=== PATIENT | female | born 1940 | race Caucasian/White ===

== ENCOUNTER → 2016-05-18 | Outpatient (CLI) | payer MEDICARE, OTHER ==
[~2016-05-18] MED LIST: CHOL2000 PO; GLIP5TAB11 PO; PLN5 PO
[2016-05-18 18:53] LABS: BASO ABS # 0.09 K/uL (0-0.2); COMPLETE YES; EOS % 8.8 %; HEMATOCRIT 27.7 % (37-47); IG% 0.2 %; LYMPH % 17.1 %; LYMPH ABS # 1.62 K/uL (1.2-3.4); MEAN CELL VOLUME 89.1 fL (80-100); MEAN CORPUSCULAR HEMOGLOBIN 29.3 pg (25-34); MEAN CORPUSCULAR HGB CONC 32.9 g/dl (32-36); MEAN PLATELET VOLUME 10.3 fL (7.4-10.4); MONO % 8.1 %; NEUT % 64.8 %; PLATELET COUNT 313 K/uL (130-400); RED BLOOD COUNT 3.11 M/uL (4.2-5.4); WHITE BLOOD COUNT 9.47 K/uL (4.8-10.8)
[2016-05-18 19:06] LABS: BLOOD UREA NITROGEN 61 mg/dl (7-18); BUN/CREATININE RATIO 16.5 (10-20); CALCIUM 8.7 mg/dl (8.5-10.1); CARBON DIOXIDE 22 mmol/L (21-32); CHLORIDE 109 mmol/L (98-107); GLUCOSE 107 mg/dl (70-99); PHOSPHORUS 4.1 mg/dl (2.5-4.9); POTASSIUM 5.5 mmol/L (3.5-5.1); SODIUM 142 mmol/L (136-145)
[2016-05-19 06:03] LABS: ESTIMATED AVERAGE GLUCOSE 131 mg/dl; HA1C FLAG Normal (Normal)
== END | disposition home or self-care (01) ==
LOC: C.LABMFLN 11:23
PROVIDERS: ATTEND Family Medicine
DX: E11.29 Type 2 diabetes mellitus with other diabetic kidney complication (principal)

== ENCOUNTER 2016-09-10 04:46 | Inpatient (IN) | payer MEDICARE, OTHER ==
[~2016-09-10] VITALS: Ht 160 cm; Wt 77.4 kg
[2016-09-10] VITALS (67 sets, daily range): BP systolic 30–170; BP diastolic 22–79; PULSE 27–162; TEMP 36.3–37.8; O2SAT 50–100; Ht 160 cm; Wt 77.4 kg
[2016-09-10] MEDS ORDERED: ASPIRIN 324 MG CHEW ONE (04:53)
[2016-09-10] MEDS ORDERED: SODIUM CHLORIDE 0.9% 1000ML 1,000 ML IV STA (04:53)
[2016-09-10] MEDS ORDERED: GLIP5TAB11 PO ×2 (04:53)
[2016-09-10] MEDS ORDERED: ONDANSETRON INJ 2 MG/ML 2 ML VIAL ONE ×2 (04:53→05:27)
[2016-09-10] MEDS ORDERED: PLN5 PO (04:53)
[2016-09-10] MEDS ORDERED: CHOL2000 PO (04:54)
[2016-09-10] MEDS ORDERED: NovoLIN-R INSULIN PER UNIT CHARGE SC STA (04:57)
[2016-09-10] MEDS ORDERED: DEXTROSE 50% 50 ML SYR IV STA (04:57)
[2016-09-10] MEDS ORDERED: CALCIUM GLUCONATE 10% 10 ML VIAL IV STA (04:57)
[2016-09-10] MEDS ORDERED: SODIUM CHLORIDE 0.9% 250ML 250 ML IV STA (04:57)
[2016-09-10 05:03] LABS: BASO % 0.1 %; BASO ABS # 0.01 K/uL (0-0.2); HEMATOCRIT 28.1 % (37-47); IG% 1.3 %; LYMPH % 3.7 %; LYMPH ABS # 0.68 K/uL (1.2-3.4); MEAN CORPUSCULAR HEMOGLOBIN 29.8 pg (25-34); MEAN CORPUSCULAR HGB CONC 31.7 g/dl (32-36); MEAN PLATELET VOLUME 10.8 fL (7.4-10.4); MONO % 6.5 %; NEUT % 88.4 %; PLATELET COUNT 312 K/uL (130-400); RED BLOOD COUNT 2.99 M/uL (4.2-5.4); WHITE BLOOD COUNT 18.33 K/uL (4.8-10.8)
[2016-09-10] MEDS ORDERED: PROMETHAZINE HCL INJ 12.5 MG in SODIUM CHLORIDE 0.9% 50ML 50 ML IV STA (05:05)
[2016-09-10] MEDS ORDERED: MIDAZOLAM HCL 1 MG/ML 2ML VIAL ONE (05:08)
[2016-09-10] MEDS ORDERED: HEPARIN SOD (PORCINE) 1000 UNIT/ML 10 ML VIAL ONE (05:08)
[2016-09-10] MEDS ORDERED: NiCARDipine HCL INJ 2.5 MG/ML 10 ML AMP ONE (05:08)
[2016-09-10] MEDS ORDERED: NITROGLYCERIN/D5W 100MCG/ML 20ML SYR ONE (05:09)
[2016-09-10] MEDS ORDERED: FENTANYL CITRATE INJ 50 MCG/1 ML 2 ML VIAL ONE ×2 (05:09→17:57)
[2016-09-10 05:11] LABS: ISTAT CREATININE 7.8 mg/dl (0.6-1.3); ISTAT HEMOGLOBIN 9.5 g/dl (12.0-16.0); ISTAT IONIZED CALCIUM 1.05 mmol/l (1.12-1.32)
--- NOTE | 2016-09-10 05:17 | EMERGENCY ROOM VISIT NOTE ---
History Report prepared by Rosanna: Philly Paredes Under the Supervision of: Dr. Rita Ocasio M.D. First contact with patient: 04:47 Chief Complaint: HEART ALERT Stated Complaint: HEART ALERT History of Present Illness The patient is a 75 year old who presents to the Emergency Room with complaints of constant abdominal pain beginning [employer]. Per EMS, they were called by family because the patient was complaining of back pain and abdominal pain. She has been nauseated for the past 3 days. EMS arrived and family said that she does not go to the doctor frequently. The last time that she went, she was told that she needed dialysis, but she never followed up with this. She thinks this was about a year ago. She has never received dialysis and is not scheduled to. She was nauseated and dry heaving en route and EMS gave her 4mg of Zofran. The patient refused aspirin. She denies any current chest pain or shortness of breath. 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 A total of 10 systems reviewed and were otherwise negative. Past Medical & Surgical Medical Problems: (1) Type 2 diabetes mellitus Family History No pertinent history stated. Social History Smoking Status: Never Smoker Marital Status: Housing Status: lives with family Current/Historical Medications Scheduled Cholecalciferol (Vitamin D3), 1 CAP PO DAILY Felodipine (Felodipine ER), 5 MG PO DAILY Glipizide (Glucotrol), 1 TAB PO QAM Miscellaneous Medications Glipizide (Glucotrol), 0.5 TAB PO Physical Exam Vital Signs Date Time Temp Pulse Resp B/P Pulse Ox O2 Delivery O2 Flow Rate FiO2 09/10/16 05:13 57 20 108/61 96 Nasal Cannula 4.0 09/10/16 05:11 94 Nasal Cannula 4.0 09/10/16 04:56 43 09/10/16 04:50 89 4.0 09/10/16 04:50 36.5 49 22 121/62 96 Nasal Cannula 4.0 Physical Exam Vital signs reviewed. General: Pale ill-appearing 75 year old female, retching. HEENT: No scleral icterus, PERRLA, neck supple. Atraumatic. Cardiovascular: Bradycardic rate and irregular rhythm, no extra sounds. Pulmonary: Crackles at the bases bilaterally. Increased work of breathing. Abdomen: Soft, no specific point tenderness, nondistended, positive bowel sounds. Musculoskeletal: Atraumatic, no peripheral edema. Left mid-foot amputation. Neurologic: Patient awake alert and oriented x 3, full strength in all 4 extremities. Cranial nerves 2 through 12 grossly intact. Skin: Clammy, [id number], pale Medical Decision & Procedures ER Provider Diagnostic Interpretation: Chest x-ray as interpreted by myself pulmonary vascular congestion with pulmonary consolidation at the bases bilaterally. Laboratory Results 09/10/16 04:54 Red Blood Count 2.99, Mean Corpuscular Volume 94.0, Mean Corpuscular Hemoglobin 29.8, Mean Corpuscular Hemoglobin Concent 31.7, Mean Platelet Volume 10.8, Neutrophils (%) (Auto) 88.4, Lymphocytes (%) (Auto) 3.7, Monocytes (%) (Auto) 6.5, Eosinophils (%) (Auto) 0.0, Basophils (%) (Auto) 0.1, Neutrophils # (Auto) 16.21, Lymphocytes # (Auto) 0.68, Monocytes # (Auto) 1.20, Eosinophils # (Auto) 0.00, Basophils # (Auto) 0.01 09/10/16 04:54 Test 09/10/16 04:54 09/10/16 04:55 White Blood Count 18.33 K/uL (4.8-10.8) Red Blood Count 2.99 M/uL (4.2-5.4) Hemoglobin 8.9 g/dL (12.0-16.0) Hematocrit 28.1 % (37-47) Mean Corpuscular Volume 94.0 fL (80-100) Mean Corpuscular Hemoglobin 29.8 pg (25-34) Mean Corpuscular Hemoglobin Concent 31.7 g/dl (32-36) Platelet Count 312 K/uL (130-400) Mean Platelet Volume 10.8 fL (7.4-10.4) Neutrophils (%) (Auto) 88.4 % Lymphocytes (%) (Auto) 3.7 % Monocytes (%) (Auto) 6.5 % Eosinophils (%) (Auto) 0.0 % Basophils (%) (Auto) 0.1 % Neutrophils # (Auto) 16.21 K/uL (1.4-6.5) Lymphocytes # (Auto) 0.68 K/uL (1.2-3.4) Monocytes # (Auto) 1.20 K/uL (0.11-0.59) Eosinophils # (Auto) 0.00 K/uL (0-0.5) Basophils # (Auto) 0.01 K/uL (0-0.2) RDW Standard Deviation 51.3 fL (36.4-46.3) RDW Coefficient of Variation 15.1 % (11.5-14.5) Immature Granulocyte % (Auto) 1.3 % Immature Granulocyte # (Auto) 0.23 K/uL (0.00-0.02) Nucleated RBC Absolute Count (auto) 0.09 K/uL (0-0) Nucleated Red Blood Cells % 0.5 % Ovalocytes 1+ Echinocytes 1+ Prothrombin Time 15.8 SECONDS (9.0-12.0) Prothromb Time International Ratio 1.5 (0.9-1.1) Activated Partial Thromboplast Time 27.8 SECONDS (21.0-31.0) Partial Thromboplastin Ratio 1.1 Est Creatinine Clear Calc Drug Dose 6.4 ml/min Estimated GFR () 5.7 Estimated GFR (Non- 4.9 BUN/Creatinine Ratio 13.6 (10-20) Calcium Level 7.8 mg/dl (8.5-10.1) Magnesium Level 2.5 mg/dl (1.8-2.4) Total Bilirubin 6.5 mg/dl (0.2-1) Direct Bilirubin 0.4 mg/dl (0-0.2) Aspartate Amino Transf (AST/SGOT) 774 U/L (15-37) Alanine Aminotransferase (ALT/SGPT) 891 U/L (12-78) Alkaline Phosphatase 82 U/L (45-117) Total Creatine Kinase 2041 U/L (26-192) Creatine Kinase MB 107.2 ng/ml (0.5-3.6) Creatine Kinase MB Ratio 5.3 (0-3.0) Troponin I 73.200 ng/ml (0-0.045) Total Protein 6.5 gm/dl (6.4-8.2) Albumin 3.3 gm/dl (3.4-5.0) Lipase 58 U/L (73-393) Bedside Hemoglobin 9.5 g/dl (12.0-16.0) Bedside Hematocrit 28 % (37-47) Bedside Sodium 135 mEq/L (135-144) Bedside Potassium 7.3 mEq/L (3.3-5.0) Bedside Chloride 111 mEq/L (101-112) Bedside Total CO2 10 mEq/l (24-31) Anion Gap 23.0 mmol/L (16-25) Bedside Blood Urea Nitrogen 115 mg/dl (7-18) Bedside Creatinine 7.8 mg/dl (0.6-1.3) Bedside Glucose (other) 192 mg/dl (70-99) Bedside Ionized Calcium (Bogdan) 1.05 mmol/l (1.12-1.32) Medications Administered Medications (Trade) Dose Ordered Sig/Tad Route Start Time Stop Time Status Last Admin Dose Admin Aspirin (Aspirin Chew) 324 mg STK-MED ONCE .ROUTE 09/10/16 04:53 09/10/16 04:54 DC 09/10/16 05:12 324 MG Ondansetron HCl 4 mg 4 mg STK-MED ONCE .ROUTE 09/10/16 04:53 09/10/16 04:54 DC 09/10/16 05:11 4 MG Sodium Chloride (Nss 1000ml) 1,000 ml @ 75 mls/hr [id number] STAT IV 09/10/16 04:53 09/10/16 18:12 09/10/16 05:12 75 MLS/HR Dextrose (Dextrose 50% 50ML Syringe) 50 ml NOW STAT IV 09/10/16 04:57 09/10/16 04:58 DC 09/10/16 05:09 25 ML Calcium Gluconate (Calcium Gluconate 10%) 1,000 mg NOW STAT IV 09/10/16 04:57 09/10/16 04:58 DC 09/10/16 05:11 1,000 MG Insulin Human Regular 10 units 10 units NOW STAT SC 09/10/16 04:57 09/10/16 04:58 DC 09/10/16 05:10 10 UNITS Promethazine HCl/ Sodium Chloride (Phenergan Inj/ Nss 50ml) 50.5 ml @ 204 mls/hr NOW STAT IV 09/10/16 05:05 09/10/16 05:19 DC 09/10/16 05:05 204 MLS/HR Procedure Endotracheal Intubation Indication: hypoxia. The patient was on 100% oxygen via NRB prior to the procedure. Suction, airway equipment, RSI drugs, respiratory equipment, and appropriate personnel were prepared prior to the initiation of the procedure. A time out was taken. Induction was performed with 35 mg Rocuronium and 20 mg of etomidate. After observing the clinical benefit of the medications, the airway was easily visualized utilizing a 4.0 MAC blade. A 7.5 size ETT tube was placed atraumatically to 22 cm using standard technique. The cuff inflated without signs of malfunction. There were bilateral breath sounds, positive colormetric change, no gastric sounds, a good capnography waveform, and post procedure pulse oximetry was 94%. Post intubation sedation and paralysis was left to the hospitalist service. There were no complications. ECG Indication: abdominal pain Rate (beats per minute): 50 Rhythm: sinus rhythm Findings: 1st degree AV block, ST elevation (Inferior and lateral), other ( Reciprocal change in the anterior leads) ED Course 0447: Past medical records reviewed. The patient was evaluated in room B1. A complete history and physical examination was performed. Prior to the patient's arrival in the department, I took medical command and a heart alert was called. 0453: NSS 1000 ml @ 75 mls/hr IV, Zofran 4 mg IV, Aspirin 324 mg PO 0457: Insulin Human Regular 10 units SC, Calcium Gluconate 1000 mg IV, Dextrose 50 ml IV 0500: At this time Dr. Foley of cardiology came to the ED to evaluate the patient. We discussed the patient's case. 0505: Promethazine HCl 12.5 mg/Sodium Chloride 50.5 ml @ 204 mls/hr IV 0511: The patient's daughter arrived in the department. I updated her on the patient's results and treatment plan. I answered all of her questions. 0515: Dr. Foley will take the patient to the cardiac catheterization lab at this time. 0521: I spoke with Dr. Calle. We discussed the patient's results and treatment plan. The patient will be evaluated by the [facility] for further management. 0615: At this time I was called to the cardiac catheterization lab to intubate the patient. Please see the procedure note for further details. Medical Decision Differential diagnoses includes ACS, aortic dissection, dehydration, metabolic abnormality, PE, CHF, viral illness, bowel obstruction, GI bleed, acute renal failure. This pt was evaluated and appeared to be in no distress. IV access was obtained and lab work was drawn. Patient was placed on the athletic monitor. iSTAT labs were drawn. The patient's creatinine is found to be 7.8, potassium is 7.3. Patient's EKG reveals a first-degree AV block with a bradycardia. There is ST elevation NE present. Heart alert was called based on the medic command given prior to arrival. Patient was given 1 amp of calcium gluconate, one half amp of D 50 because of a blood sugar of 198. Patient was then given regular insulin 10 units IV push. IV hydration was initiated. Supplemental oxygen was provided. The patient was given 4 baby aspirin to chew. We did discuss the need for dialysis, the patient states she was told she needed dialysis previously however stopped going to the doctor. At this time she states she is amenable to intervention. Dr. Foley of interventional cardiology did present to the emergency department and took the patient to the catheterization lab after discussing the case with the patient and her daughter. While in the catheterization lab, the patient became hypoxic and required intubation. I was called for the procedure, please see my note above. The patient was sent to the intensive care unit after a dialysis catheter was placed by Dr. Foley, please see his notes for further details. Consults Time Called: 0518 Consulting Physician: Dr. Calle Returned Call: [address] Calle. We discussed the patient's results and treatment plan. The patient will be evaluated by the [facility] for further management. Impression Primary Impression: Acute myocardial infarction Additional Impressions: Bradycardia Acute on chronic renal failure Hyperkalemia Critical Care I have personally spent greater than 45 minutes of critical care time in the direct management of this patient. This includes bedside care, interpretation of diagnostic studies, and testing, discussion with consultants, patient, and family members, and other required patient management activities. This 45 minutes is in excess of all separately billable procedures. Scribe Attestation The scribe's documentation has been prepared under my direction and personally reviewed by me in its entirety. I confirm that the note above accurately reflects all work, treatment, procedures, and medical decision making performed by me. Departure Information Dispostion Being Evaluated By Hospitalist Referrals Isis Jacobs M.D. (PCP) Patient Instructions My [facility] Problem Qualifiers Primary Impression: Acute myocardial infarction Myocardial infarction ST status: ST elevation myocardial infarction Involved coronary artery: unspecified coronary artery Qualified Codes: I21.3 - ST elevation (STEMI) myocardial infarction of unspecified site Additional Impressions: Acute on chronic renal failure Acute renal failure type: unspecified Chronic kidney disease stage: stage 5 , not on chronic dialysis Qualified Codes: N17.9 - Acute kidney failure, unspecified; N18.5 - Chronic kidney disease, stage 5
[2016-09-10 05:21] LABS: INR 1.5 (0.9-1.1); PARTIAL THROMBOPLASTIN RATIO 1.1; PROTHROMBIN TIME (PATIENT) 15.8 SECONDS (9.0-12.0)
[2016-09-10 05:24] LABS: COMPLETE YES; ECHINOCYTES 1+; OVALOCYTES 1+
[2016-09-10 05:39] LABS: BUN/CREATININE RATIO 13.6 (10-20); CALCIUM 7.8 mg/dl (8.5-10.1); CKMB/CK RATIO 5.3 (0-3.0); CREATININE 7.3 mg/dl (0.60-1.20); MAGNESIUM 2.5 mg/dl (1.8-2.4); POTASSIUM 7.2 mmol/L (3.5-5.1)
[2016-09-10] MEDS ORDERED: EPTIFIBATIDE 2 MG/ML 10 ML VIAL IV ONE (05:52)
[2016-09-10] MEDS ORDERED: SODIUM BICARB 8.4% INJ 50 MEQ/50 ML SYR IV ONE ×2 (05:54→06:42)
[2016-09-10] MEDS ORDERED: DOPamine 400MG / 250ML D5W ONE (06:08)
[2016-09-10] MEDS ORDERED: RAPID SEQUENCE INDUCTION BAG ONE (06:20)
--- NOTE | 2016-09-10 06:43 | DIAGNOSTIC IMAGING REPORT ---
CHEST ONE VIEW PORTABLE CLINICAL HISTORY: Atypical chest pain COMPARISON STUDY: No previous studies for comparison. FINDINGS: The heart is enlarged. There is radiographic evidence of mild congestive failure/fluid overload. There are bibasal airspace opacities likely secondary to edema. An inflammatory process could appear similar and clinical correlation is advocated. Small pleural effusions are suspected. IMPRESSION: 1. Radiographic evidence of pulmonary vascular congestion with suspected small bilateral pleural effusions 2. Bibasal airspace opacities. While likely representing focal edema, an infectious process could appear similar and clinical correlation in this regard is advocated Electronically signed by: Stephane Nichols M.D. 09/10/2016 6:42 AM Dictated Date/Time: 09/10/2016 6:40 AM
[2016-09-10] MEDS ORDERED: SODIUM BICARBONATE 8.4% INJ 150 MEQ in SODIUM CHLORIDE 0.45% 1000ML 1,000 ML IV SCH (07:00)
[2016-09-10] MEDS ORDERED: DEXTROSE 50% 50 ML SYR IV PRN (07:15)
[2016-09-10] MEDS ORDERED: GLUCAGON FOR INJ 1 MG VIAL SQ PRN (07:15)
[2016-09-10] MEDS ORDERED: EPTIFIBATIDE BOLUS / DRIP IV ONE (07:15)
[2016-09-10] MEDS ORDERED: GLUCOSE 10 TABS/TUBE PO PRN (07:15)
[2016-09-10] MEDS ORDERED: GLUCOSE 40% GEL 15 GM TUBE PO PRN (07:15)
--- NOTE | 2016-09-10 07:20 | Procedure Note ---
Pre-Mod Sedation Assessment General Date of Moderate Sedation: September 10, 2016. Vital Signs: Vital Signs Past 12 Hours Date Time Temp Pulse Resp B/P Pulse Ox O2 Delivery O2 Flow Rate FiO2 09/10/16 05:13 57 20 108/61 96 Nasal Cannula 4.0 09/10/16 05:11 94 Nasal Cannula 4.0 09/10/16 04:56 43 09/10/16 04:50 89 4.0 09/10/16 04:50 36.5 49 22 121/62 96 Nasal Cannula 4.0 Review Cardiovascular: regular rate, rhythm, no edema Abdomen: normal bowel sounds, non tender Lungs: chest non-tender, lungs clear Pre-Sedation Airway Assessment Oral Cavity: WNL Able to Visualize Vocal Cords: Yes Short Thick Neck: Yes Hx of Sleep Apnea: Yes Smoking Status: Never Smoker Mallampati Classification: Class III ASA Classification: Class III Procedure Planning Contraindications-for Mod Sed: None Yes Notes The planned sedation has been discussed with the patient and consent obtained. I have identified the patient, determined the appropriateness of sedation and have assessed the patient immediately prior to the procedure. All medicine(s) and interventions are by my order.
--- NOTE | 2016-09-10 07:21 | Procedure Note ---
Post-Mod Sedation Assessment General Date of Moderate Sedation September 10, 2016. Vital Signs: Vital Signs Past 12 Hours Date Time Temp Pulse Resp B/P Pulse Ox O2 Delivery O2 Flow Rate FiO2 09/10/16 05:13 57 20 108/61 96 Nasal Cannula 4.0 09/10/16 05:11 94 Nasal Cannula 4.0 09/10/16 04:56 43 09/10/16 04:50 89 4.0 09/10/16 04:50 36.5 49 22 121/62 96 Nasal Cannula 4.0 Review - Discharge Criteria Vital Signs Stable: Yes Alert/Oriented/Conversant: Yes Returned to Baseline Mental St: Yes Nausea Absent/Minimal: Yes Pain/Discomfort/Absent/Minimal: Yes Normal/Baseline Respirations: Yes Active Bleeding?: N/A Pt Received D/C Instructions: N/A Prescriptions Given: None Specific Proced. D/C Criteria Distal Pulses Present (Cardiac: Yes Groin site assessed-Card Cath: N/A Voided Prior To Discharge: N/A Discharged Patients Adult Escort/Transportation: Yes
[2016-09-10 07:34] LABS: ISTAT CREATININE 6.8 mg/dl (0.6-1.3); ISTAT HEMOGLOBIN 8.2 g/dl (12.0-16.0); ISTAT IONIZED CALCIUM 1.12 mmol/l (1.12-1.32)
[2016-09-10 07:34] LABS: ISTAT CREATININE 6.9 mg/dl (0.6-1.3); ISTAT HEMOGLOBIN 8.8 g/dl (12.0-16.0); ISTAT IONIZED CALCIUM 1.13 mmol/l (1.12-1.32)
[2016-09-10 07:34] LABS: ISTAT ARTERIAL BLOOD GAS HCO3 9 meq/L (19-24); ISTAT ARTERIAL BLOOD GAS PCO2 41 mmHg (35-46); ISTAT ARTERIAL BLOOD GAS PO2 175 mmHg (80-95); ISTAT ARTERIAL BLOOD GAS pH 6.95 (7.35-7.45); ISTAT CARBON DIOXIDE 10 mEq/l (24-31)
[2016-09-10 07:34] LABS: ISTAT ARTERIAL BLOOD GAS HCO3 17 meq/L (19-24); ISTAT ARTERIAL BLOOD GAS PCO2 45 mmHg (35-46); ISTAT ARTERIAL BLOOD GAS PO2 157 mmHg (80-95); ISTAT ARTERIAL BLOOD GAS pH 7.19 (7.35-7.45); ISTAT CARBON DIOXIDE 18 mEq/l (24-31)
--- NOTE | 2016-09-10 07:46 | Cardiac Catheterization ---
Procedure Note Procedure Date September 10, 2016. Pre-Procedure Diagnosis STEMI AUC Score 9 Post-Procedure Diagnosis Severe CAD, Successful PCI, Elevated Intracardiac Pressures Procedure(s) Performed Coronary Angiography, Left Heart Cath, Drug Eluting Stent Software Test Developer Delivery Sales Worker(s) Gab Estimated Blood Loss 27 Medication(s) Atropine, Dopamine, Fentanyl, Heparin, Integrilin, Nicardipine, Lidocaine 1% Summary of Findings Indication: STEMI/Heart Alert Access: 6Fr slender right radial artery Catheters: Wilmot, JR4 guide Findings: LM - Luminal irregularities LAD - Moderately calcified, diffuse mid segment disease up to 80% just proximal to take-off of small 2nd diagonal. Circumflex - Small, non-dominant, luminal irregularities RCA - Completely occluded in the mid segment. Post initial balloon inflation noted to have severe diffuse disease from mid to distal segment prior to take- off of PDA. PDA with sequential 80% lesions. LVEDP - 28 -- PCI -- Antithrombotic therapy: Heparin, IV/IC integrilin Procedure: RCA cannulated with JR4 guide Unable to pass lesion with BMW, successfully passed Dog Boarder 50 wire across lesion into distal vessel Mid RCA lesion predilated with 2.5 compliant balloon Dilated lesion stented with overlapping 3.0 x 38 Resolute MARY and 3.0 x 22 Resolute MARY Stent post-dilated with stent balloon. IC nicardipine, IC integrilin administered for slow reflow post stenting. PDA disease treated with gentle balloon angioplasty Post stenting patient hypotensive and bradycardic requiring dopamine and atropine. Respiratory status became increasing unstable decision made to intubate patient. Intubation performed Dr. Ocasio. Post procedure ROSA 3 flow, stent well expanded with minimal residual stenosis. minimal residual stenosis in ballooned PDA. No apparent cardiac complications. Arterial Closure: TR Band In total in the setting of patients renal failure, hyperkalemia and metabolic acidosis patient received 5 units insulin, 6 Amps Bicarb before being placed on a bicarb infusion. At the completion of case, temporary dialysis catheter placed to right femoral vein. Dopamine weaned off prior to leaving laborer pipelines. Summary: 1. Inferior STEMI/Occluded mid RCA 2. Residual severe mid LAD disease 3. Elevated intracardiac filling pressure 4. Successful PCI of mid RCA with 2 overlapping Resolute MARY (3.0 x 33, 3.0 x 22 ) Recommendations: Admit to ICU Continue integrilin infusion for 12 hours To receive ticagrelor 180 mg in ICU. Continue DAPT for at least 1 year (likely transition to plavix prior to discharge) Trend troponin until peak, Check Echo Nephrology contacted regarding emergent HD Start beta-mikaela. GARCIA as BP allows High-dose statin Consult cardiac Rehab Further evaluation/revascularization of LAD likely as an outpatient. Hemodynamics Rest Ao: 112/47/73 Final Ao: 138/74/100 LV: 104/17/28 Recommendations PCI without planned CABG Specimens None Radiation Exposure (mGy) 2973 Contrast (mls) 110 Fluids (cc crystalloids) 290 Drains none Anesthesia moderate Procedural Complication(s) None Disposition ICU ACC Data Cardiac Status Clinical evaluation leading to the procedure CAD Presntation: STEMI Anginal Classification: CCS IV Heart Failure: No, NYHA Class: CCS IV Cardiogenic Shock w/in 24Hrs: Yes Cardiac Arrest w/in 24Hrs: No Imaging studies past 6 months: No Stress studies past 6 months: No Standard Exercise Stress Test: No Stress Echocardiogram: No Stress Testing w/SPECT MPI: No Cardiac CTA: No Coronary Anatomy Dominant: Right Left Main (% Stenosis): Normal LAD (% Stenosis): Mid (90) Circumflex (% Stenosis): Normal RCA (% Stenosis): Mid (100) R PDA (% Stenosis): Proximal (80) Diagnostic Physician's Name: Beck Foley MD Status: Emergency Closure Device Percutaneous Entry Location: Radial Closure Device: Radial Band Recommendations: PCI without planned CABG PCI Indication: Immediate PCI for STEMI First Noted: First EKG Lesion Segment Name: Mid RCA Culprit Artery: Yes Stenosis Prior to Rx (%): 100 Chronic Total Occlusion: No IVUS: No FFR: No Pre-Procedure ROSA Flow: 0 Previously Treated Lesion: No Lesion Complexity: Non-High/Non-C Lesion Length (mm): 25 Thrombus Present: Yes Bifurcation Lesion: No Guidewire Across Lesion: Yes Guidewire: Stenosis Post-Procedure (%): 0 Post-Procedure ROSA Flow: 3 Device(s) Deployed: Yes Intraprocedure Events Significant Dissection: No Perforation: No
--- NOTE | 2016-09-10 07:53 | Procedure Note ---
Procedure Note Procedure Date September 10, 2016. Procedure Description Procedure Name: Left radial arterial line Procedure time out: side/site verified, patient ID confirmed, correct procedure Consent obtained: emergent consent implied Time of procedure: 07:30 Performed by: attending Indications: diagnostic Contraindications: none Description: Indication: hypotension, respiratory failure, AMI, need for invasive blood pressure monitoring. Patient's left wrist was prepped with chlorhexidine and draped in sterile fashion. 2 ML's 1% lidocaine was used to anesthetize the area. Using dynamic ultrasound the left radial artery was visualized. A 20-gauge aero catheter was used to enter the left radial artery via modified Seldinger technique. Good blood return was noted, the catheter was secured via stat lock. Patient tolerated the procedure well Blood loss: Trace Complications: none Patient tolerated procedure: well Post-procedure vital signs: reviewed and stable Comments: Critical Care Medicine Point of Care Bedside Ultrasound Procedure: Procedural Ultrasound Procedure Date: 09/10/2016 Indication: Acute [place], hypertension, need for emergent dialysis, need for invasive hemodynamic monitoring Attending: Nabor Davis DO Resident/Physician Crane Ladle Person: Not applicable Artery visualized: Yes Guidewire or Short Catheter seen in artery prior to dilation: y Impression: Successful placement of left radial arterial line Plan: Emergent dialysis to be started imminently Images obtained are saved for permanent record
[2016-09-10] MEDS ORDERED: EPTIFIBATIDE INJ 75 MG PREMIXED IV SCH (08:00)
[2016-09-10] MEDS ORDERED: TICAGRELOR 90 MG TAB PO ONE (08:00)
[2016-09-10] MEDS ORDERED: MIDAZOLAM 125MG/250ML D5W 250 ML IV PRN (08:15)
[2016-09-10 08:43] LABS: ISTAT ARTERIAL BLOOD GAS HCO3 15 meq/L (19-24); ISTAT ARTERIAL BLOOD GAS PCO2 41 mmHg (35-46); ISTAT ARTERIAL BLOOD GAS PO2 157 mmHg (80-95); ISTAT ARTERIAL BLOOD GAS pH 7.18 (7.35-7.45); ISTAT CARBON DIOXIDE 16 mEq/l (24-31); ISTAT HEMATOCRIT 22 % (37-47); ISTAT HEMOGLOBIN 7.5 g/dl (12.0-16.0); ISTAT SODIUM 141 mEq/L (135-144)
[2016-09-10] MEDS ORDERED: MAGNESIUM SULFATE 1GM / D5W 1 GM in PREMIXED IN D5W 100 ML IV ONE (09:00)
[2016-09-10] MEDS ORDERED: EPOETIN ALFA 10,000 UNITS/ML VIAL IV. SCH (09:00)
[2016-09-10] MEDS ORDERED: DOBUTamine 500MG / 250ML D5W ONE (09:06)
--- NOTE | 2016-09-10 09:07 | Nephrology Consultation ---
Nephrology Consultation Date & Providers Date of Consultation: September 10, 2016. Primary Care Provider: Isis Jacobs M.D. Referring Provider: Reason for Consultation Emergency HD History of Present Illness Ms. Baugh is a 75 year old white female who is seen at the request of Dr. Foley to provide emergency HD. 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 Previously she was evaluated by Dr. Rangel at the [place] office. She was educated about her stage IV CKD and renal replacement therapies were discussed. The patient was last seen 07/15 and chose not to pursue further Nephrology evaluation. Ms. Baugh was brought to the ED this morning for evaluation of abdominal and back pain. Creatinine was 7.8, K 7.3. ECG revealed 1st degree AVB with bradycardia and evidence of STEMI. Patient received IV Ca, bicarbonate and insulin. She was taken emergently to the lab asst. Cardiac catheterization revealed occluded RCA and diffuse LAD disease. Patient underwent DUDE WRANGLER w/ stenting x 2 of the RCA. Nephrology was consulted by telephone. A right femoral temporary dialysis catheter was placed at the conclusion of her catheterization procedure. Ms. Baugh developed respiratory failure. She required intubation and was subsequently admitted to the ICU for emergency HD and ongoing medical management. The patient's clinical course and medical plan of care has been discussed with Dr. Foley, the critical care team and the patient's family. Ms. Baugh's daughter indicated that she will provide consent for hemodialysis. The family noted that Ms. Baugh was opposed to HD in the past but understand that it is acutely necessary at this time to stabilize her condition and allow an informed decision at a later date. Past Medical/Surgical History Medical: 1. Acute osteomyelitis (M86.10) 2. Anemia (D64.9) 3. Benign essential hypertension (I10) 4. Chronic kidney disease, stage 4 (severe) (N18.4) 5. Diabetes mellitus type 2, uncontrolled (E11.65) 6. Diabetes mellitus with renal manifestation (E11.29) 7. Hypercholesterolemia (E78.0) 8. Nausea (R11.0) 9. Postmenopausal bleeding (N95.0) 10. Type 2 Diabetes Mellitus With Diabetic Peripheral Angiopathy With Gangrene Surgical: History of Surgery Left Foot Amputation MTP Inpatient Medications Current Inpatient Medications Medications (Trade) Dose Ordered Sig/Tad Route Start Time Stop Time Status Last Admin Dose Admin Sodium Bicarbonate/ Sodium Chloride (Sodium Bicarbonate 8.4% Inj/1/2 Nss 1000ml) 1,150 ml @ 150 mls/hr [id number] IV 09/10/16 07:00 09/10/16 14:39 Metoprolol Tartrate (Lopressor Tab) 25 mg Q12 PO 09/10/16 09:00 10/10/16 08:59 Ticagrelor (Brilinta Cap) 90 mg BID PO 09/10/16 21:00 10/10/16 20:59 Aspirin (Ecotrin Tab) 81 mg QAM PO 09/11/16 09:00 10/11/16 08:59 Atorvastatin Calcium (Lipitor Tab) 80 mg HS PO 09/10/16 21:00 10/10/16 20:59 Insulin Aspart (novoLOG ASPART) SLIDING SCALE If C... ACHS SC 09/10/16 11:00 10/10/16 10:59 Glucose (Glucose 40% Gel) 15-30 GRAMS 15 GRAMS... UD PRN PO 09/10/16 07:15 10/10/16 07:14 Glucose (Glucose Chew Tab) 4-8 Tablets 4 Tabl... UD PRN PO 09/10/16 07:15 10/10/16 07:14 Dextrose (Dextrose 50% 50ML Syringe) 25-50ML OF 50% DW IV FOR... UD PRN IV 09/10/16 07:15 10/10/16 07:14 Glucagon 1 mg 1 mg UD PRN SQ 09/10/16 07:15 10/10/16 07:14 Eptifibatide (Integrilin Inj) 100 ml @ 6 mls/hr [id number] IV 09/10/16 08:00 09/10/16 19:00 Miscellaneous 1 ea 1 ea ONE ONCE N/A 09/10/16 19:00 09/10/16 19:01 Midazolam HCl (Midazolam 125MG/ 250ML D5w) 250 ml @ 0 mls/hr Q0M PRN IV 09/10/16 08:15 10/10/16 08:14 Epoetin Adis (Procrit Inj) 10,000 units ONE ONCE IV. 09/10/16 08:30 09/10/16 08:31 UNV Heparin Sodium (Porcine) (No Heparin In Dialysis) 1 ea ONE ONCE N/A 09/10/16 08:30 09/10/16 08:31 UNV Family History Negative for CKD / ESRD Social History Smoking Status: Never Smoker Marital Status: . Never a smoker Review of Systems Unable to obtain. Patient is currently on mechanical ventilation Physical Exam Date Time Temp Pulse Resp B/P Pulse Ox O2 Delivery O2 Flow Rate FiO2 09/10/16 07:15 100 09/10/16 07:01 113 10 159/72 98 Ambu-Bag 15 09/10/16 06:56 117 10 155/95 98 Ambu-Bag 15 09/10/16 05:13 57 20 108/61 96 Nasal Cannula 4.0 09/10/16 05:11 94 Nasal Cannula 4.0 09/10/16 04:56 43 09/10/16 04:50 89 4.0 09/10/16 04:50 36.5 49 22 121/62 96 Nasal Cannula 4.0 Head: normocephalic, atraumatic Eyes: PERRL ENT: + pertinent finding (orotracheal intubation) Respiratory/Chest: + pertinent finding (coarse breath sounds bilaterally) Cardiovascular: regular rate, rhythm Abdomen/GI: normal bowel sounds, non tender, soft Extremities/Musculoskelatal: no pedal edema Neurologic/Psych: alert Skin: warm/dry Laboratory Results Last 24 Hours Test 09/10/16 04:54 09/10/16 04:55 09/10/16 05:50 09/10/16 05:51 White Blood Count 18.33 K/uL Red Blood Count 2.99 M/uL Hemoglobin 8.9 g/dL Hematocrit 28.1 % Mean Corpuscular Volume 94.0 fL Mean Corpuscular Hemoglobin 29.8 pg Mean Corpuscular Hemoglobin Concent 31.7 g/dl Platelet Count 312 K/uL Mean Platelet Volume 10.8 fL Neutrophils (%) (Auto) 88.4 % Lymphocytes (%) (Auto) 3.7 % Monocytes (%) (Auto) 6.5 % Eosinophils (%) (Auto) 0.0 % Basophils (%) (Auto) 0.1 % Neutrophils # (Auto) 16.21 K/uL Lymphocytes # (Auto) 0.68 K/uL Monocytes # (Auto) 1.20 K/uL Eosinophils # (Auto) 0.00 K/uL Basophils # (Auto) 0.01 K/uL RDW Standard Deviation 51.3 fL RDW Coefficient of Variation 15.1 % Immature Granulocyte % (Auto) 1.3 % Immature Granulocyte # (Auto) 0.23 K/uL Nucleated RBC Absolute Count (auto) 0.09 K/uL Nucleated Red Blood Cells % 0.5 % Ovalocytes 1+ Echinocytes 1+ Prothrombin Time 15.8 SECONDS Prothromb Time International Ratio 1.5 Activated Partial Thromboplast Time 27.8 SECONDS Partial Thromboplastin Ratio 1.1 Sodium Level 138 mmol/L Potassium Level 7.2 mmol/L Chloride Level 110 mmol/L Carbon Dioxide Level 8 mmol/L Anion Gap 20.0 mmol/L 23.0 mmol/L 27.0 mmol/L Blood Urea Nitrogen 100 mg/dl Creatinine 7.30 mg/dl Est Creatinine Clear Calc Drug Dose 6.4 ml/min Estimated GFR () 5.7 Estimated GFR (Non- 4.9 BUN/Creatinine Ratio 13.6 Random Glucose 187 mg/dl Calcium Level 7.8 mg/dl Magnesium Level 2.5 mg/dl Total Bilirubin 6.5 mg/dl Direct Bilirubin 0.4 mg/dl Aspartate Amino Transf (AST/SGOT) 774 U/L Alanine Aminotransferase (ALT/SGPT) 891 U/L Alkaline Phosphatase 82 U/L Total Creatine Kinase 2041 U/L Creatine Kinase MB 107.2 ng/ml Creatine Kinase MB Ratio 5.3 Troponin I 73.200 ng/ml Total Protein 6.5 gm/dl Albumin 3.3 gm/dl Lipase 58 U/L Bedside Hemoglobin 9.5 g/dl 8.8 g/dl Bedside Hematocrit 28 % 26 % Bedside Sodium 135 mEq/L 136 mEq/L Bedside Potassium 7.3 mEq/L 6.5 mEq/L Bedside Chloride 111 mEq/L 107 mEq/L Bedside Total CO2 10 mEq/l 9 mEq/l Bedside Blood Urea Nitrogen 115 mg/dl 114 mg/dl Bedside Creatinine 7.8 mg/dl 6.9 mg/dl Bedside Glucose (other) 192 mg/dl 190 mg/dl Bedside Ionized Calcium (Bogdan) 1.05 mmol/l 1.13 mmol/l Kaolin Activated Coagulation Time 209 SECONDS Test 09/10/16 06:25 09/10/16 06:32 09/10/16 06:56 09/10/16 08:38 Bedside Hemoglobin 8.2 g/dl Bedside Hematocrit 24 % Kaolin Activated Coagulation Time 209 SECONDS Bedside Sodium 138 mEq/L Bedside Potassium 6.1 mEq/L Bedside Chloride 109 mEq/L Bedside Total CO2 12 mEq/l Anion Gap 24.0 mmol/L Bedside Blood Urea Nitrogen 117 mg/dl Bedside Creatinine 6.8 mg/dl Bedside Glucose (other) 175 mg/dl Bedside Ionized Calcium (Bogdan) 1.12 mmol/l Bedside Blood Gas pH (LAB) 6.95 7.19 Bedside Blood Gas pCO2 (LAB) 41 mmHg 45 mmHg Bedside Blood Gas pO2 (LAB) 175 mmHg 157 mmHg Bedside Blood Gas HCO3 (LAB) 9 meq/L 17 meq/L Bedside Blood Gas Total CO2 10 mEq/l 18 mEq/l Bedside Blood Gas Base Excess (LAB) -23.0 meq/L -11.0 meq/L Bedside Blood Gas O2 Saturation 98.0 % 99.0 % Impression (1) Kidney failure (2) Hyperkalemia (3) Bradycardia (4) Acute myocardial infarction (5) Type 2 diabetes mellitus Recommendations -- Case discussed w/ Cardiology, ICU team and patient's family. Indications/ benefits/risks and alternatives to HD were discussed at length with the family this morning. Daughter has provided consent for HD procedure. Will stop NaHCO3 gtt and provide HD against a 2K 32mEq HCO3 bath. Will attempt 2 L UF to correct pulmonary edema and allow for weaning from ventilator. Patient is anemic. Will transfuse 2 U PRBC during HD this morning. -- Will recheck PRP, CBC in am -- Will order follow up CXR in am -- Protect L arm for possible future HD access 90 minutes direct face to face patient care porvided in the ICU this morning. This was necessary to examine patient, confer with medical team, speak w/ family and coordinate acute hemodialysis
[2016-09-10] MEDS ORDERED: DOBUTamine / D5W 500 MG IV PRN (09:15)
--- NOTE | 2016-09-10 09:16 | Dialysis Progress Note ---
Hemodialysis Note Date of Service September 10, 2016. Chief Complaint Emergency HD Review of Systems A complete review of systems was performed. Pertinent positives are noted above. All other systems are negative. Vital Signs Last 8 Hrs Date Time Temp Pulse Resp B/P Pulse Ox O2 Delivery O2 Flow Rate FiO2 09/10/16 07:15 100 09/10/16 07:01 113 10 159/72 98 Ambu-Bag 15 09/10/16 06:56 117 10 155/95 98 Ambu-Bag 15 09/10/16 05:13 57 20 108/61 96 Nasal Cannula 4.0 09/10/16 05:11 94 Nasal Cannula 4.0 09/10/16 04:56 43 09/10/16 04:50 89 4.0 09/10/16 04:50 36.5 49 22 121/62 96 Nasal Cannula 4.0 I & O 24-Hour Column 09/10/16 08:00 Intake Total 150 ml Balance 150 ml Last Recorded Weight Weight (Kilograms): 75.700 Family History Negative for CKD / ESRD Social History Marital Status: . Never a smoker Laboratory Results Past 24 Hours 09/10/16 04:54 Red Blood Count 2.99, Mean Corpuscular Volume 94.0, Mean Corpuscular Hemoglobin 29.8, Mean Corpuscular Hemoglobin Concent 31.7, Mean Platelet Volume 10.8, Neutrophils (%) (Auto) 88.4, Lymphocytes (%) (Auto) 3.7, Monocytes (%) (Auto) 6.5, Eosinophils (%) (Auto) 0.0, Basophils (%) (Auto) 0.1, Neutrophils # (Auto) 16.21, Lymphocytes # (Auto) 0.68, Monocytes # (Auto) 1.20, Eosinophils # (Auto) 0.00, Basophils # (Auto) 0.01 09/10/16 04:54 Test 09/10/16 04:54 09/10/16 04:55 09/10/16 05:50 09/10/16 05:51 White Blood Count 18.33 K/uL (4.8-10.8) Red Blood Count 2.99 M/uL (4.2-5.4) Hemoglobin 8.9 g/dL (12.0-16.0) Hematocrit 28.1 % (37-47) Mean Corpuscular Volume 94.0 fL (80-100) Mean Corpuscular Hemoglobin 29.8 pg (25-34) Mean Corpuscular Hemoglobin Concent 31.7 g/dl (32-36) Platelet Count 312 K/uL (130-400) Mean Platelet Volume 10.8 fL (7.4-10.4) Neutrophils (%) (Auto) 88.4 % Lymphocytes (%) (Auto) 3.7 % Monocytes (%) (Auto) 6.5 % Eosinophils (%) (Auto) 0.0 % Basophils (%) (Auto) 0.1 % Neutrophils # (Auto) 16.21 K/uL (1.4-6.5) Lymphocytes # (Auto) 0.68 K/uL (1.2-3.4) Monocytes # (Auto) 1.20 K/uL (0.11-0.59) Eosinophils # (Auto) 0.00 K/uL (0-0.5) Basophils # (Auto) 0.01 K/uL (0-0.2) RDW Standard Deviation 51.3 fL (36.4-46.3) RDW Coefficient of Variation 15.1 % (11.5-14.5) Immature Granulocyte % (Auto) 1.3 % Immature Granulocyte # (Auto) 0.23 K/uL (0.00-0.02) Nucleated RBC Absolute Count (auto) 0.09 K/uL (0-0) Nucleated Red Blood Cells % 0.5 % Ovalocytes 1+ Echinocytes 1+ Prothrombin Time 15.8 SECONDS (9.0-12.0) Prothromb Time International Ratio 1.5 (0.9-1.1) Activated Partial Thromboplast Time 27.8 SECONDS (21.0-31.0) Partial Thromboplastin Ratio 1.1 Anion Gap 20.0 mmol/L (3-11) 23.0 mmol/L (16-25) 27.0 mmol/L (16-25) Est Creatinine Clear Calc Drug Dose 6.4 ml/min Estimated GFR () 5.7 Estimated GFR (Non- 4.9 BUN/Creatinine Ratio 13.6 (10-20) Calcium Level 7.8 mg/dl (8.5-10.1) Magnesium Level 2.5 mg/dl (1.8-2.4) Total Bilirubin 6.5 mg/dl (0.2-1) Direct Bilirubin 0.4 mg/dl (0-0.2) Aspartate Amino Transf (AST/SGOT) 774 U/L (15-37) Alanine Aminotransferase (ALT/SGPT) 891 U/L (12-78) Alkaline Phosphatase 82 U/L (45-117) Total Creatine Kinase 2041 U/L (26-192) Creatine Kinase MB 107.2 ng/ml (0.5-3.6) Creatine Kinase MB Ratio 5.3 (0-3.0) Troponin I 73.200 ng/ml (0-0.045) Total Protein 6.5 gm/dl (6.4-8.2) Albumin 3.3 gm/dl (3.4-5.0) Lipase 58 U/L (73-393) Bedside Hemoglobin 9.5 g/dl (12.0-16.0) 8.8 g/dl (12.0-16.0) Bedside Hematocrit 28 % (37-47) 26 % (37-47) Bedside Sodium 135 mEq/L (135-144) 136 mEq/L (135-144) Bedside Potassium 7.3 mEq/L (3.3-5.0) 6.5 mEq/L (3.3-5.0) Bedside Chloride 111 mEq/L (101-112) 107 mEq/L (101-112) Bedside Total CO2 10 mEq/l (24-31) 9 mEq/l (24-31) Bedside Blood Urea Nitrogen 115 mg/dl (7-18) 114 mg/dl (7-18) Bedside Creatinine 7.8 mg/dl (0.6-1.3) 6.9 mg/dl (0.6-1.3) Bedside Glucose (other) 192 mg/dl (70-99) 190 mg/dl (70-99) Bedside Ionized Calcium (Bogdan) 1.05 mmol/l (1.12-1.32) 1.13 mmol/l (1.12-1.32) Kaolin Activated Coagulation Time 209 SECONDS (94-140) Test 09/10/16 06:25 09/10/16 06:32 09/10/16 06:56 09/10/16 07:42 Bedside Hemoglobin 8.2 g/dl (12.0-16.0) 7.5 g/dl (12.0-16.0) Bedside Hematocrit 24 % (37-47) 22 % (37-47) Kaolin Activated Coagulation Time 209 SECONDS (94-140) Bedside Sodium 138 mEq/L (135-144) 141 mEq/L (135-144) Bedside Potassium 6.1 mEq/L (3.3-5.0) 5.5 mEq/L (3.3-5.0) Bedside Chloride 109 mEq/L (101-112) Bedside Total CO2 12 mEq/l (24-31) Anion Gap 24.0 mmol/L (16-25) Bedside Blood Urea Nitrogen 117 mg/dl (7-18) Bedside Creatinine 6.8 mg/dl (0.6-1.3) Bedside Glucose (other) 175 mg/dl (70-99) Bedside Ionized Calcium (Bogdan) 1.12 mmol/l (1.12-1.32) Bedside Blood Gas pH (LAB) 6.95 (7.35-7.45) 7.19 (7.35-7.45) 7.18 (7.35-7.45) Bedside Blood Gas pCO2 (LAB) 41 mmHg (35-46) 45 mmHg (35-46) 41 mmHg (35-46) Bedside Blood Gas pO2 (LAB) 175 mmHg (80-95) 157 mmHg (80-95) 157 mmHg (80-95) Bedside Blood Gas HCO3 (LAB) 9 meq/L (19-24) 17 meq/L (19-24) 15 meq/L (19-24) Bedside Blood Gas Total CO2 10 mEq/l (24-31) 18 mEq/l (24-31) 16 mEq/l (24-31) Bedside Blood Gas Base Excess (LAB) -23.0 meq/L (-9-1.8) -11.0 meq/L (-9-1.8) -13.0 meq/L (-9-1.8) Bedside Blood Gas O2 Saturation 98.0 % (90-95) 99.0 % (90-95) 99.0 % (90-95) Test 09/10/16 07:47 Bedside Glucose (other) 171 mg/dl (70-99) Medications Current Inpatient Medications Medications (Trade) Dose Ordered Sig/Tad Route Start Time Stop Time Status Last Admin Dose Admin Sodium Bicarbonate/ Sodium Chloride (Sodium Bicarbonate 8.4% Inj/1/2 Nss 1000ml) 1,150 ml @ 150 mls/hr [id number] IV 09/10/16 07:00 09/10/16 14:39 Metoprolol Tartrate (Lopressor Tab) 25 mg Q12 PO 09/10/16 09:00 10/10/16 08:59 Ticagrelor (Brilinta Cap) 90 mg BID PO 09/10/16 21:00 10/10/16 20:59 Aspirin (Ecotrin Tab) 81 mg QAM PO 09/11/16 09:00 10/11/16 08:59 Atorvastatin Calcium (Lipitor Tab) 80 mg HS PO 09/10/16 21:00 10/10/16 20:59 Insulin Aspart (novoLOG ASPART) SLIDING SCALE If C... ACHS SC 09/10/16 11:00 10/10/16 10:59 Glucose (Glucose 40% Gel) 15-30 GRAMS 15 GRAMS... UD PRN PO 09/10/16 07:15 10/10/16 07:14 Glucose (Glucose Chew Tab) 4-8 Tablets 4 Tabl... UD PRN PO 09/10/16 07:15 10/10/16 07:14 Dextrose (Dextrose 50% 50ML Syringe) 25-50ML OF 50% DW IV FOR... UD PRN IV 09/10/16 07:15 10/10/16 07:14 Glucagon 1 mg 1 mg UD PRN SQ 09/10/16 07:15 10/10/16 07:14 Eptifibatide (Integrilin Inj) 100 ml @ 6 mls/hr [id number] 09/10/16 08:00 09/10/16 19:00 Miscellaneous 1 ea 1 ea ONE ONCE N/A 09/10/16 19:00 09/10/16 19:01 Midazolam HCl (Midazolam 125MG/ 250ML D5w) 250 ml @ 0 mls/hr Q0M PRN IV 09/10/16 08:15 10/10/16 08:14 Epoetin Adis (Procrit Inj) 10,000 units ONE ONCE IV. 09/10/16 08:30 09/10/16 08:31 UNV Heparin Sodium (Porcine) (No Heparin In Dialysis) 1 ea ONE ONCE N/A 09/10/16 08:30 09/10/16 08:31 UNV Impression (1) Kidney failure (2) Hyperkalemia (3) Bradycardia (4) Acute myocardial infarction (5) Type 2 diabetes mellitus Recommendations Patient seen & examined on HD. Femoral catheter is running A --> A at Qb 300 cc /min. Blood pressure is labile. Qb will be reduced to 200 cc/min. ICU team aware and will start Dobutamine support. Type & cross drawn. Awaiting blood from blood bank.
[2016-09-10 09:32] LABS: HEMATOCRIT 25.2 % (37-47)
[2016-09-10 09:54] LABS: HEPATITIS B AB NEG
[2016-09-10 10:09] LABS: ISTAT ARTERIAL BLOOD GAS HCO3 15 meq/L (19-24); ISTAT ARTERIAL BLOOD GAS PCO2 37 mmHg (35-46); ISTAT ARTERIAL BLOOD GAS PO2 131 mmHg (80-95); ISTAT ARTERIAL BLOOD GAS pH 7.21 (7.35-7.45); ISTAT CARBON DIOXIDE 16 mEq/l (24-31); ISTAT DELIVERY SYSTEM Ventilator; ISTAT FIO2 100 %; ISTAT PEEP 5; ISTAT RATE 18; ISTAT SITE Art Line; VE 11.7; Vt 400
[2016-09-10] MEDS: METOPROLOL TARTRATE 25 MG TAB PO SCH ×2 (10:09→20:57)
[2016-09-10] MEDS ORDERED: INSULIN ASPART 100 UNITS/ML 3 ML PEN SC SCH (11:00)
--- NOTE | 2016-09-10 11:03 | Palliative Care Consultation ---
Consultation Date of Consultation: September 10, 2016. Requesting Physician: Dr. Davis Attending Physician: Alexsandra Dalal PA-C, Dr. Davis Reason for Consultation: Goals of care History of Present Illness This 75 year old female patient presented to the ED early this morning with c/o abdominal and back pain, nausea and vomiting. History obtained from record and from the daughter Maggie, patient is not able to answer as she is on mechanical ventilator. Apparently the patient had not been feeling well for several days, and really in the last month. Has had a "mental decline" per the daughter-- worsening depression. The patient has long-standing history of severe kidney disease and was recently told she needed dialysis, however the patient was refusing dialysis. When she arrived to the ED, patient had ST elevation on EKG, creatinine 7.8, potassium 7.3. Patient taken to optical laboratory mechanic as a heart alert, had two drug-eluding stents placed to the RCA, which was 100% blocked. Patient also has occluded LAD, but not able to stent. Patient went into respiratory distress in optical laboratory mechanic, was intubated and admitted to ICU. Patient is now undergoing emergent dialysis, having episodes of Torsades on the monitor. Patient has no advanced directive or living will, no appointed POA. Her daughter, Maggie, is in-house. Palliative care consulted to assist in establishing goals of care. Myself, Dr. Davis and Maggie (daughter, surrogate decision-maker by default ) met outside of patient's room. Per the daughter, the patient has always suffered from depression and states she wishes she would just . On the other hand, when her daughter would try and encourage her to be more compliant with her health needs, patient would say "I just want to live, and they all just want me to ." Patient seems to have a very skewed view of her illnesses and healthcare. Maggie did state that patient has always been adamant about not wanting to be on dialysis long-term, and truly believes her mother would not want to be maintained in a vegetative or low-functioning state. We specifically discussed code status-- given the multiple co-morbidities, multiple critical and life-threatening conditions, the daughter does not believe her mother would want to be resuscitated if her heart were to stop. For now, the goal is to continue all other treatment. Daughter called the patient's other sons (who are adopted grandchildren of the patient's), to come back to the hospital as the patient is not doing well. As our conversation was ending, the patient went pulseless, did obtain ROSC without CPR or intervention. She remains critically ill on the ventilator at this time. Daughter is now at patient's bedside. When I was initially in patient's room she was responsive and able to answer questions with head nods. By the end of visit, patient completely unresponsive. Past Medical/Surgical History Medical History: DM type 2 Htn CKD stage IV Anemia Hypercholesterolemia Surgical History: Left toe amputations Social History Smoking Status: Never Smoker History of Alcohol Use: No Marital Status: Review of Systems unable to obtain Medications Current Inpatient Medications Medications (Trade) Dose Ordered Sig/Tad Route Start Time Stop Time Status Last Admin Dose Admin Sodium Bicarbonate/ Sodium Chloride (Sodium Bicarbonate 8.4% Inj/1/2 Nss 1000ml) 1,150 ml @ 150 mls/hr [id number] IV 09/10/16 07:00 09/10/16 14:39 09/10/16 09:01 150 MLS/HR Metoprolol Tartrate (Lopressor Tab) 25 mg Q12 PO 09/10/16 09:00 10/10/16 08:59 Ticagrelor (Brilinta Cap) 90 mg BID PO 09/10/16 21:00 10/10/16 20:59 Aspirin (Ecotrin Tab) 81 mg QAM PO 09/11/16 09:00 10/11/16 08:59 Atorvastatin Calcium (Lipitor Tab) 80 mg HS PO 09/10/16 21:00 10/10/16 20:59 Glucose (Glucose 40% Gel) 15-30 GRAMS 15 GRAMS... UD PRN PO 09/10/16 07:15 10/10/16 07:14 Glucose (Glucose Chew Tab) 4-8 Tablets 4 Tabl... UD PRN PO 09/10/16 07:15 10/10/16 07:14 Dextrose (Dextrose 50% 50ML Syringe) 25-50ML OF 50% DW IV FOR... UD PRN IV 09/10/16 07:15 10/10/16 07:14 Glucagon 1 mg 1 mg UD PRN SQ 09/10/16 07:15 10/10/16 07:14 Eptifibatide (Integrilin Inj) 100 ml @ 6 mls/hr [id number] IV 09/10/16 08:00 09/10/16 19:00 09/10/16 08:59 6 MLS/HR Miscellaneous 1 ea 1 ea ONE ONCE N/A 09/10/16 19:00 09/10/16 19:01 Midazolam HCl (Midazolam 125MG/ 250ML D5w) 250 ml @ 0 mls/hr Q0M PRN IV 09/10/16 08:15 10/10/16 08:14 Epoetin Adis 74576 units 10,000 units 0900 IV. 09/10/16 09:00 09/10/16 18:00 Dobutamine HCl (DOBUTamine / D5W) 250 ml @ 0 mls/hr Q0M PRN IV 09/10/16 09:15 10/10/16 09:14 Physical Exam Date Time Temp Pulse Resp B/P Pulse Ox O2 Delivery O2 Flow Rate FiO2 09/10/16 08:00 36.5 49 14 118/79 98 Mechanical Ventilator 100 09/10/16 07:15 100 09/10/16 07:01 113 10 159/72 98 Ambu-Bag 15 09/10/16 06:56 117 10 155/95 98 Ambu-Bag 15 09/10/16 05:13 57 20 108/61 96 Nasal Cannula 4.0 09/10/16 05:11 94 Nasal Cannula 4.0 09/10/16 04:56 43 09/10/16 04:50 89 4.0 09/10/16 04:50 36.5 49 22 121/62 96 Nasal Cannula 4.0 General Appearance: + pertinent finding (critically ill on mechanical ventilator) Neck: no JVD Respiratory: no accessory muscle use, + pertinent finding (on ventilator via ETT) Cardiovascular: regular rate, rhythm (episodes of Torsades), no edema Abdomen: soft, + distended Neurologic/Psychiatric: + pertinent finding (now obtunded and unresponsive) Skin: + pallor Laboratory Results Last 24 Hours Test 09/10/16 04:54 09/10/16 04:55 09/10/16 05:50 09/10/16 05:51 White Blood Count 18.33 K/uL Red Blood Count 2.99 M/uL Hemoglobin 8.9 g/dL Hematocrit 28.1 % Mean Corpuscular Volume 94.0 fL Mean Corpuscular Hemoglobin 29.8 pg Mean Corpuscular Hemoglobin Concent 31.7 g/dl Platelet Count 312 K/uL Mean Platelet Volume 10.8 fL Neutrophils (%) (Auto) 88.4 % Lymphocytes (%) (Auto) 3.7 % Monocytes (%) (Auto) 6.5 % Eosinophils (%) (Auto) 0.0 % Basophils (%) (Auto) 0.1 % Neutrophils # (Auto) 16.21 K/uL Lymphocytes # (Auto) 0.68 K/uL Monocytes # (Auto) 1.20 K/uL Eosinophils # (Auto) 0.00 K/uL Basophils # (Auto) 0.01 K/uL RDW Standard Deviation 51.3 fL RDW Coefficient of Variation 15.1 % Immature Granulocyte % (Auto) 1.3 % Immature Granulocyte # (Auto) 0.23 K/uL Nucleated RBC Absolute Count (auto) 0.09 K/uL Nucleated Red Blood Cells % 0.5 % Ovalocytes 1+ Echinocytes 1+ Prothrombin Time 15.8 SECONDS Prothromb Time International Ratio 1.5 Activated Partial Thromboplast Time 27.8 SECONDS Partial Thromboplastin Ratio 1.1 Sodium Level 138 mmol/L Potassium Level 7.2 mmol/L Chloride Level 110 mmol/L Carbon Dioxide Level 8 mmol/L Anion Gap 20.0 mmol/L 23.0 mmol/L 27.0 mmol/L Blood Urea Nitrogen 100 mg/dl Creatinine 7.30 mg/dl Est Creatinine Clear Calc Drug Dose 6.4 ml/min Estimated GFR () 5.7 Estimated GFR (Non- 4.9 BUN/Creatinine Ratio 13.6 Random Glucose 187 mg/dl Calcium Level 7.8 mg/dl Magnesium Level 2.5 mg/dl Total Bilirubin 6.5 mg/dl Direct Bilirubin 0.4 mg/dl Aspartate Amino Transf (AST/SGOT) 774 U/L Alanine Aminotransferase (ALT/SGPT) 891 U/L Alkaline Phosphatase 82 U/L Total Creatine Kinase 2041 U/L Creatine Kinase MB 107.2 ng/ml Creatine Kinase MB Ratio 5.3 Troponin I 73.200 ng/ml Total Protein 6.5 gm/dl Albumin 3.3 gm/dl Lipase 58 U/L Hepatitis B Surface Antigen NEG Hepatitis B Surface Antibody NEG Bedside Hemoglobin 9.5 g/dl 8.8 g/dl Bedside Hematocrit 28 % 26 % Bedside Sodium 135 mEq/L 136 mEq/L Bedside Potassium 7.3 mEq/L 6.5 mEq/L Bedside Chloride 111 mEq/L 107 mEq/L Bedside Total CO2 10 mEq/l 9 mEq/l Bedside Blood Urea Nitrogen 115 mg/dl 114 mg/dl Bedside Creatinine 7.8 mg/dl 6.9 mg/dl Bedside Glucose (other) 192 mg/dl 190 mg/dl Bedside Ionized Calcium (Bogdan) 1.05 mmol/l 1.13 mmol/l Kaolin Activated Coagulation Time 209 SECONDS Test 09/10/16 06:25 09/10/16 06:32 09/10/16 06:56 09/10/16 07:42 Bedside Hemoglobin 8.2 g/dl 7.5 g/dl Bedside Hematocrit 24 % 22 % Kaolin Activated Coagulation Time 209 SECONDS Bedside Sodium 138 mEq/L 141 mEq/L Bedside Potassium 6.1 mEq/L 5.5 mEq/L Bedside Chloride 109 mEq/L Bedside Total CO2 12 mEq/l Anion Gap 24.0 mmol/L Bedside Blood Urea Nitrogen 117 mg/dl Bedside Creatinine 6.8 mg/dl Bedside Glucose (other) 175 mg/dl Bedside Ionized Calcium (Bogdan) 1.12 mmol/l Bedside Blood Gas pH (LAB) 6.95 7.19 7.18 Bedside Blood Gas pCO2 (LAB) 41 mmHg 45 mmHg 41 mmHg Bedside Blood Gas pO2 (LAB) 175 mmHg 157 mmHg 157 mmHg Bedside Blood Gas HCO3 (LAB) 9 meq/L 17 meq/L 15 meq/L Bedside Blood Gas Total CO2 10 mEq/l 18 mEq/l 16 mEq/l Bedside Blood Gas Base Excess (LAB) -23.0 meq/L -11.0 meq/L -13.0 meq/L Bedside Blood Gas O2 Saturation 98.0 % 99.0 % 99.0 % Test 09/10/16 07:47 09/10/16 09:03 09/10/16 09:47 09/10/16 09:53 Bedside Glucose (other) 171 mg/dl Hemoglobin 7.7 g/dL Hematocrit 25.2 % Blood Gas Sample Site Art Line Bedside Blood Gas pH (LAB) 7.21 Bedside Blood Gas pCO2 (LAB) 37 mmHg Bedside Blood Gas pO2 (LAB) 131 mmHg Bedside Blood Gas HCO3 (LAB) 15 meq/L Bedside Blood Gas Total CO2 16 mEq/l Bedside Blood Gas Base Excess (LAB) -13.0 meq/L Bedside Blood Gas O2 Saturation 99.0 % José Test NA Oxygen Delivery Device Ventilator Bedside Oxygen Rate (breaths/min) 18 Blood Gas Minute Ventilation 11.7 Bedside FiO2 100 % Blood Gas Tidal Volume 400 Blood Gas PEEP 5 Test 09/10/16 09:58 Bedside Glucose (other) 198 mg/dl Assessment & Plan Palliative Performance Scale: 10 % Problem list: Acute STEMI s/p 2 MARY to RCA today Acute respiratory failure Bradycardia/Torsades Renal failure- receiving emergent dialysis Hyperkalemia Anemia DM type 2 Depression Goals of care (Z51.5) Palliative care recommendations: discussed with daughter and Dr. Davis -Care managed by critical care team, cardiology, and nephrology at this time -DNR/DNI -Patient is critically ill in ICU -Continue current aggressive treatment in hopes of recovery. However, if little hope of recovery, the family may be moving more towards comfort measures only as the patient "wouldn't want this" per the family -Called and left a message for our lead section supervisor to come and see patient/family -Support given to daughter Maggie Thank you kindly for this consult. I will be happy to follow and provide any palliative needs.
--- NOTE | 2016-09-10 11:13 | History and Physical ---
History & Physical Date & Time of Service: September 10, 2016 at 09:00 Chief Complaint: Acute Myocard. Infarction, Acute On Chronic Renal Primary Care Physician: Isis Jacobs M.D. History of Present Illness Source: patient, family, clinic records, hospital records This is a 75 y/o female with a history of CKD stage V, DM II, HTN, HLD and anemia of chronic disease who presented to the ED on 09/10 with persistent abdominal and back pain as well as nausea per family report. The patient arrived to the ED as a heart alert. The patient was found to have inferior ST elevations. She was assessed by Dr. Foley of cardiology and taken to the research laboratory technician. The patient was found to have complete occlusion of the RCA, and 2 overlapping drug eluding stents were placed. The patient's respiratory status became unstable during the cath, and the patient was intubated by Dr. Ocasio. The patient had arrived in acute renal failure with a creatinine of 7.3, as well as hyperkalemia with a potassium of 7.2 and metabolic acidosis. The patient was treated with calcium gluconate, insulin and D50 in the ED. During the cath, the patient received more insulin as well as bicarb. A temporary HD cath was placed in the patient's right femoral vein during the cardiac cath. The patient was transferred to the ICU following the cath. The patient is unable to provide ROS to me during my examination. Past Medical/Surgical History Medical Problems: (1) Type 2 diabetes mellitus Status: Chronic CKD stage V without dialysis HTN HLD Anemia of chronic disease Family History Diabetes mellitus Myocardial infarction Stroke Social History Smoking Status: Former Smoker Smokeless Tobacco Use: No Alcohol Use: none Drug Use: none Marital Status: Housing status: lives with family (with grandsons (adopted as her sons)) Occupational Status: retired Allergies Coded Allergies: No Known Allergies (Unverified , 09/10/16) Home Medications Scheduled Cholecalciferol (Vitamin D3), 1 CAP PO DAILY Felodipine (Felodipine ER), 5 MG PO DAILY Glipizide (Glucotrol), 1 TAB PO QAM Miscellaneous Medications Glipizide (Glucotrol), 0.5 TAB PO Review of Systems Unable to obtain ROS due to patient's condition. Physical Exam Vital Signs Date Time Temp Pulse Resp B/P Pulse Ox O2 Delivery O2 Flow Rate FiO2 09/10/16 07:15 100 09/10/16 07:01 113 10 159/72 98 Ambu-Bag 15 09/10/16 06:56 117 10 155/95 98 Ambu-Bag 15 09/10/16 05:13 57 20 108/61 96 Nasal Cannula 4.0 09/10/16 05:11 94 Nasal Cannula 4.0 09/10/16 04:56 43 09/10/16 04:50 89 4.0 09/10/16 04:50 36.5 49 22 121/62 96 Nasal Cannula 4.0 General Appearance: WD/WN, + severe distress (intubated. condition very guarded ) Head: normocephalic, atraumatic Eyes: normal inspection, sclerae normal, + pertinent finding (exam limited due to condition) ENT: + pertinent finding (unable to examine due to intubation) Neck: supple, no JVD, trachea midline Respiratory/Chest: + decreased breath sounds, + accessory muscle use, + pertinent finding (coarse breath sounds) Cardiovascular: no gallop, no murmur, + tachycardia Abdomen/GI: normal bowel sounds, non tender, soft Extremities/Musculoskelatal: normal inspection, no pedal edema, + pertinent finding (left transmetatarsal amp) Neurologic/Psych: + pertinent finding (sedated, nods her head intermittently. unable to assess mood/orientation) Skin: warm/dry, no rash, + pallor Diagnostics Laboratory Results Results Past 24 Hours Test 09/10/16 04:54 09/10/16 04:55 09/10/16 05:50 09/10/16 05:51 Range/Units White Blood Count 18.33 4.8-10.8 K/uL Red Blood Count 2.99 4.2-5.4 M/uL Hemoglobin 8.9 12.0-16.0 g/dL Hematocrit 28.1 37-47 % Mean Corpuscular Volume 94.0 80-100 fL Mean Corpuscular Hemoglobin 29.8 25-34 pg Mean Corpuscular Hemoglobin Concent 31.7 32-36 g/dl Platelet Count 312 130-400 K/uL Mean Platelet Volume 10.8 7.4-10.4 fL Neutrophils (%) (Auto) 88.4 % Lymphocytes (%) (Auto) 3.7 % Monocytes (%) (Auto) 6.5 % Eosinophils (%) (Auto) 0.0 % Basophils (%) (Auto) 0.1 % Neutrophils # (Auto) 16.21 1.4-6.5 K/uL Lymphocytes # (Auto) 0.68 1.2-3.4 K/uL Monocytes # (Auto) 1.20 0.11-0.59 K/uL Eosinophils # (Auto) 0.00 0-0.5 K/uL Basophils # (Auto) 0.01 0-0.2 K/uL RDW Standard Deviation 51.3 36.4-46.3 fL RDW Coefficient of Variation 15.1 11.5-14.5 % Immature Granulocyte % (Auto) 1.3 % Immature Granulocyte # (Auto) 0.23 0.00-0.02 K/uL Nucleated RBC Absolute Count (auto) 0.09 0-0 K/uL Nucleated Red Blood Cells % 0.5 % Ovalocytes 1+ Echinocytes 1+ Prothrombin Time 15.8 9.0-12.0 SECONDS Prothromb Time International Ratio 1.5 0.9-1.1 Activated Partial Thromboplast Time 27.8 21.0-31.0 SECONDS Partial Thromboplastin Ratio 1.1 Sodium Level 138 136-145 mmol/L Potassium Level 7.2 3.5-5.1 mmol/L Chloride Level 110 98-107 mmol/L Carbon Dioxide Level 8 21-32 mmol/L Anion Gap 20.0 23.0 27.0 16-25 mmol/L Blood Urea Nitrogen 100 7-18 mg/dl Creatinine 7.30 0.60-1.20 mg/dl Est Creatinine Clear Calc Drug Dose 6.4 ml/min Estimated GFR () 5.7 Estimated GFR (Non- 4.9 BUN/Creatinine Ratio 13.6 10-20 Random Glucose 187 70-99 mg/dl Calcium Level 7.8 8.5-10.1 mg/dl Magnesium Level 2.5 1.8-2.4 mg/dl Total Bilirubin 6.5 0.2-1 mg/dl Direct Bilirubin 0.4 0-0.2 mg/dl Aspartate Amino Transf (AST/SGOT) 774 15-37 U/L Alanine Aminotransferase (ALT/SGPT) 891 12-78 U/L Alkaline Phosphatase 82 45-117 U/L Total Creatine Kinase 2041 26-192 U/L Creatine Kinase MB 107.2 0.5-3.6 ng/ml Creatine Kinase MB Ratio 5.3 0-3.0 Troponin I 73.200 0-0.045 ng/ml Total Protein 6.5 6.4-8.2 gm/dl Albumin 3.3 3.4-5.0 gm/dl Lipase 58 73-393 U/L Bedside Hemoglobin 9.5 8.8 12.0-16.0 g/dl Bedside Hematocrit 28 26 37-47 % Bedside Sodium 135 136 135-144 mEq/L Bedside Potassium 7.3 6.5 3.3-5.0 mEq/L Bedside Chloride 111 107 101-112 mEq/L Bedside Total CO2 10 9 24-31 mEq/l Bedside Blood Urea Nitrogen 115 114 7-18 mg/dl Bedside Creatinine 7.8 6.9 0.6-1.3 mg/dl Bedside Glucose (other) 192 190 70-99 mg/dl Bedside Ionized Calcium (Bogdan) 1.05 1.13 1.12-1.32 mmol/l Kaolin Activated Coagulation Time 209 94-140 SECONDS Test 09/10/16 06:25 09/10/16 06:32 09/10/16 06:56 09/10/16 07:42 Range/Units Bedside Hemoglobin 8.2 7.5 12.0-16.0 g/dl Bedside Hematocrit 24 22 37-47 % Kaolin Activated Coagulation Time 209 94-140 SECONDS Bedside Sodium 138 141 135-144 mEq/L Bedside Potassium 6.1 5.5 3.3-5.0 mEq/L Bedside Chloride 109 101-112 mEq/L Bedside Total CO2 12 24-31 mEq/l Anion Gap 24.0 16-25 mmol/L Bedside Blood Urea Nitrogen 117 7-18 mg/dl Bedside Creatinine 6.8 0.6-1.3 mg/dl Bedside Glucose (other) 175 70-99 mg/dl Bedside Ionized Calcium (Bogdan) 1.12 1.12-1.32 mmol/l Bedside Blood Gas pH (LAB) 6.95 7.19 7.18 7.35-7.45 Bedside Blood Gas pCO2 (LAB) 41 45 41 35-46 mmHg Bedside Blood Gas pO2 (LAB) 175 157 157 80-95 mmHg Bedside Blood Gas HCO3 (LAB) 9 17 15 19-24 meq/L Bedside Blood Gas Total CO2 10 18 16 24-31 mEq/l Bedside Blood Gas Base Excess (LAB) -23.0 -11.0 -13.0 -9-1.8 meq/L Bedside Blood Gas O2 Saturation 98.0 99.0 99.0 90-95 % Test 09/10/16 07:47 09/10/16 08:38 Range/Units Bedside Glucose (other) 171 70-99 mg/dl Diagnostic Radiology Reviewed the following studies and agree with interpretation as follows: Patient Name: CYNTHIA COFFEY Unit Number: [id number] Dictated: 09/10/16639 Transcribed: 09/10/16639 ARG Printed Date/Time: [~ rep prt dt]/[~ rep prt tm] [~ rep ct labl] - [~ rep ct ivnm] [facility] [place] [address] Dictated: 09/10/16639 Transcribed: 09/10/16639 ARG Printed Date/Time: [~ rep prt dt]/[~ rep prt tm] [~ rep ct labl] - [~ rep ct ivnm] Patient: CYNTHIA COFFEY Address1: [address] [place] [address] Rec: [id number] Address2: Acct ID: [id number] [facility] Zip: [place] [address] Date: 1940 Sex: F Room/Bed: Ref Phy: Isis Jacobs M.D. SC: JOELLEN Att Phy: Report #: [id number] Zee Phy: Isis Jacobs M.D. Test: [id number] Admit Phy: Manager Water: TJ Interpreting Phy: Stephane Nichols M.D. Diagnosis: HEART ALERT Ordering Phy: Rita Ocasio M.D. Service Date: 09/10/16 Admit Date: 09/10/16 MNE: [id number] CONF: DICTATED BY: Stephane Nichols M.D.]] CC: Rita Ocasio M.D. Kolonich, Kimberly, M.D. Endcc: [~ rep ct add3]] CHEST ONE VIEW PORTABLE CLINICAL HISTORY: Atypical chest pain COMPARISON STUDY: No previous studies for comparison. FINDINGS: The heart is enlarged. There is radiographic evidence of mild congestive failure/fluid overload. There are bibasal airspace opacities likely secondary to edema. An inflammatory process could appear similar and clinical correlation is advocated. Small pleural effusions are suspected. IMPRESSION: 1. Radiographic evidence of pulmonary vascular congestion with suspected small bilateral pleural effusions 2. Bibasal airspace opacities. While likely representing focal edema, an infectious process could appear similar and clinical correlation in this regard is advocated Electronically signed by: Stephane Nichols M.D. 09/10/2016 6:42 AM Dictated Date/Time: 09/10/2016 6:40 AM The status of this report is Signed. Draft = Not yet reviewed or approved by Radiologist. Signed = Reviewed and approved by Radiologist. <AttendingPhy></AttendingPhy> <FamilyPhy>Isis Jacobs M.D.</FamilyPhy> < PrimaryPhy>Isis Jacobs M.D.</PrimaryPhy> <UnitNumber>[id number]</ UnitNumber> <VisitNumber>[id number]</VisitNumber> <PatientName>CYNTHIA COFFEY</ PatientName> <DateOfBirth>1940</DateOfBirth> <Location>C.EDB</Location> < ServiceDate>09/10/16</ServiceDate> <MNE>ESINDI</MNE> <OrderingPhy>Rita Ocasio M.D.</OrderingPhy> <OrderingPhyMNE>f rep ord dr glover</OrderingPhyMNE> < DictatingPhyMNE>f rep dict dr glover</DictatingPhyMNE> <CCListMNE>f rep ct belen</ CCListMNE> <AdmittingPhyMNE>f pt admit dr glover</AdmittingPhyMNE> <AttendingPhyMNE >f pt attend dr glover</AttendingPhyMNE> <ConsultingPhyMNE>f pt consult dr glover</ConsultingPhyMNE> <FamilyPhyMNE>f pt fam dr glover</FamilyPhyMNE> <OtherPhyMNE>f pt other dr glover</OtherPhyMNE> < PrimaryPhyMNE>f pt prim care dr glover</PrimaryPhyMNE> <ReferringPhyMNE>f pt referring dr glover</ReferringPhyMNE> EKG Reviewed EKG and agree with interpretation as follows: 50 bpm, sinus rhythm with 1st degree AV block, ST elevations inferior leads Impression Assessment and Plan 75 y/o female with a history of CKD stage V, DM II, HTN, HLD and anemia of chronic disease who presented to the ED as a heart alert with inferior ST elevations. The patient also arrived in acute on chronic renal failure, hyperkalemia and metabolic acidosis. Creatinine elevated to 7.3, potassium 7.2 , POC pH 6.95 on arrival. Pt received calcium gluconate, insulin and 1 amp D50 while in the ED. The patient was taken emergently to the research laboratory technician by Dr. Foley where the patient was found to have complete occlusion of the RCA and diffuse LAD disease. 2 drug eluding stents were placed as well as a temporary HD cath in the right femoral vein for emergent dialysis. The patient was given more insulin and bicarb in the the research laboratory technician. The patient was then transferred to the ICU. Acute inferior STEMI s/p cath and 2 MARY -Admit to ICU. Manager Payment consulted to manage. -Cardiology following, appreciate recs: Pt will need DAPT for at least 1 year. Trend troponin until peak. Pt will need echocardiogram. Consult nephrology for emergent dialysis. Start on beta mikaela therapy and GARCIA inhibitor if blood pressure allows. Start high dose statin therapy and consult cardiac rehab. -Integrilin and ticagrelor per cardiology -Lopressor 25 mg PO BID with hold parameters -Atorvastatin 80 mg PO qd -Trend troponin q12h until peaks -Echo ordered -Currently receiving dobutamine. Decompensating. Pt became pulseless and CPR briefly initiated but daughter states pt is a DNR. Pulses did come back as well as BP Acute on chronic renal failure, h/o CKD stage V with baseline GFR 11-15. Baseline creatinine appears to be around 3. Pt seen by Dr. Rangel in 2016 and recommended to start dialysis but pt refused and has not followed up since -Creatinine 7.3 on arrival -Nephrology consulted, appreciate recs: Spoke with Dr. Corrales. Daughter consented to acute dialysis. Will stop bicarb drip as this will be corrected with the dialysis; hyperkalemia should correct as well following dialysis given the settings. Pt will receive 2 units PRBC during dialysis. Dialysis was put on hold as pt became hypotensive, then pulseless. Pt's blood started. Dialysis started later in the morning. Hyperkalemia -Potassium 7.2 on arrival. Calcium gluconate and insulin as above -Last POC potassium down to 5.5 -Continue to monitor, should correct when pt gets dialysis per nephro Diabetes mellitus type 2--last hgbA1c checked 05/18/16 was 6.2 -Hold glipizide -Insulin sliding scale -Check BSGs q ac and qhs -Will recheck HgbA1c Acute on chronic anemia, h/o anemia of chronic disease--baseline Hgb appears to be around 9 -Hgb 8.9 on arrival -Hgb dropped to 7.5 following cath -Will receive 2 units PRBC -Continue to monitor H/o HTN -Hold felodipine -Lopressor as above HLD -Atorvastatin as above DVT prophylaxis -Integrilin drip and ticagrelor Code Status -Level V, DO NOT RESUSCITATE I agree with PA assessment and plan Poor prognosis STEMI s/p cath ESRD Hyperkalemia Vitals and labs reviewed Emergent dialysis needed Pt refused dialysis in the past Appreciate marina manager and nephrology support On pressor support Level of Care Critical Care Resuscitation Status DO NOT RESUSCITATE VTE Prophylaxis VTE Risk Assessment Done? Y/N: Yes Risk Level: Moderate Given or contraindicated: Other Anticoagulation Note Total Time: Critical Care > 74 minutes
[2016-09-10] MEDS ORDERED: PNEUMOCOCCAL POLYSACCHARIDES 25 MCG/0.5 ML VIAL/SYR IM. ONE (11:45)
[2016-09-10] MEDS ORDERED: PNEUMOCOCCAL ADMINISTRATION CHARGE ONE (11:45)
[2016-09-10 12:11] LABS: URINE APPEARANCE TURBID (CLEAR); URINE COLOR DK YELLOW; URINE EPITHELIAL CELL AUTO >30 /lpf (0-5); URINE NITRITE NEG (NEG); URINE SPECIFIC GRAVITY 1.035 (1.000-1.030); UROBILINOGEN NEG (NEG)
[2016-09-10 12:17] LABS: MANUAL MICROSCOPIC REQUIRED? NO; REVIEW REQ? YES; URINE BILIRUBIN NEG (NEG)
[2016-09-10 12:28] LABS: URINE PATH CASTS 5-10 GRANULAR CASTS /lpf (0)
--- NOTE | 2016-09-10 12:48 | Dialysis Progress Note ---
Hemodialysis Note Date of Service September 10, 2016. Chief Complaint Emergency HD Review of Systems A complete review of systems was performed. Pertinent positives are noted above. All other systems are negative. Vital Signs Last 8 Hrs Date Time Temp Pulse Resp B/P Pulse Ox O2 Delivery O2 Flow Rate FiO2 09/10/16 12:00 Mechanical Ventilator 80 09/10/16 12:00 80 09/10/16 11:45 100 09/10/16 10:45 97 26 90 09/10/16 10:30 106 23 79 09/10/16 10:30 80 09/10/16 10:15 107 22 79 09/10/16 09:45 109 22 80 09/10/16 09:30 118 21 100 09/10/16 09:10 52 18 78/46 09/10/16 08:37 84 20 90/67 99 09/10/16 08:30 81 20 92 09/10/16 08:15 83 21 96 09/10/16 08:00 92 25 100 09/10/16 08:00 36.5 49 14 118/79 98 Mechanical Ventilator 100 09/10/16 08:00 Mechanical Ventilator 80 09/10/16 07:45 86 9 118/79 100 09/10/16 07:40 100 09/10/16 07:30 94 0 100 09/10/16 07:15 100 09/10/16 07:01 113 10 159/72 98 Ambu-Bag 15 09/10/16 06:56 117 10 155/95 98 Ambu-Bag 15 09/10/16 05:13 57 20 108/61 96 Nasal Cannula 4.0 09/10/16 05:11 94 Nasal Cannula 4.0 09/10/16 04:56 43 09/10/16 04:50 89 4.0 09/10/16 04:50 36.5 49 22 121/62 96 Nasal Cannula 4.0 I & O 24-Hour Column 09/10/16 08:00 Intake Total 150 ml Balance 150 ml Last Recorded Weight Weight (Kilograms): 75.700 Family History Negative for CKD / ESRD Social History Smokeless Tobacco Use: No Alcohol Use: none Drug Use: none Marital Status: Housing Status: lives with family (with grandsons (adopted as her sons)) Occupation: retired . Never a smoker Laboratory Results Past 24 Hours 09/10/16 04:54 Red Blood Count 2.99, Mean Corpuscular Volume 94.0, Mean Corpuscular Hemoglobin 29.8, Mean Corpuscular Hemoglobin Concent 31.7, Mean Platelet Volume 10.8, Neutrophils (%) (Auto) 88.4, Lymphocytes (%) (Auto) 3.7, Monocytes (%) (Auto) 6.5, Eosinophils (%) (Auto) 0.0, Basophils (%) (Auto) 0.1, Neutrophils # (Auto) 16.21, Lymphocytes # (Auto) 0.68, Monocytes # (Auto) 1.20, Eosinophils # (Auto) 0.00, Basophils # (Auto) 0.01 09/10/16 09:03 09/10/16 04:54 Test 09/10/16 04:54 09/10/16 04:55 09/10/16 05:50 09/10/16 05:51 White Blood Count 18.33 K/uL (4.8-10.8) Red Blood Count 2.99 M/uL (4.2-5.4) Hemoglobin 8.9 g/dL (12.0-16.0) Hematocrit 28.1 % (37-47) Mean Corpuscular Volume 94.0 fL (80-100) Mean Corpuscular Hemoglobin 29.8 pg (25-34) Mean Corpuscular Hemoglobin Concent 31.7 g/dl (32-36) Platelet Count 312 K/uL (130-400) Mean Platelet Volume 10.8 fL (7.4-10.4) Neutrophils (%) (Auto) 88.4 % Lymphocytes (%) (Auto) 3.7 % Monocytes (%) (Auto) 6.5 % Eosinophils (%) (Auto) 0.0 % Basophils (%) (Auto) 0.1 % Neutrophils # (Auto) 16.21 K/uL (1.4-6.5) Lymphocytes # (Auto) 0.68 K/uL (1.2-3.4) Monocytes # (Auto) 1.20 K/uL (0.11-0.59) Eosinophils # (Auto) 0.00 K/uL (0-0.5) Basophils # (Auto) 0.01 K/uL (0-0.2) RDW Standard Deviation 51.3 fL (36.4-46.3) RDW Coefficient of Variation 15.1 % (11.5-14.5) Immature Granulocyte % (Auto) 1.3 % Immature Granulocyte # (Auto) 0.23 K/uL (0.00-0.02) Nucleated RBC Absolute Count (auto) 0.09 K/uL (0-0) Nucleated Red Blood Cells % 0.5 % Ovalocytes 1+ Echinocytes 1+ Prothrombin Time 15.8 SECONDS (9.0-12.0) Prothromb Time International Ratio 1.5 (0.9-1.1) Activated Partial Thromboplast Time 27.8 SECONDS (21.0-31.0) Partial Thromboplastin Ratio 1.1 Anion Gap 20.0 mmol/L (3-11) 23.0 mmol/L (16-25) 27.0 mmol/L (16-25) Est Creatinine Clear Calc Drug Dose 6.4 ml/min Estimated GFR () 5.7 Estimated GFR (Non- 4.9 BUN/Creatinine Ratio 13.6 (10-20) Calcium Level 7.8 mg/dl (8.5-10.1) Magnesium Level 2.5 mg/dl (1.8-2.4) Total Bilirubin 6.5 mg/dl (0.2-1) Direct Bilirubin 0.4 mg/dl (0-0.2) Aspartate Amino Transf (AST/SGOT) 774 U/L (15-37) Alanine Aminotransferase (ALT/SGPT) 891 U/L (12-78) Alkaline Phosphatase 82 U/L (45-117) Total Creatine Kinase 2041 U/L (26-192) Creatine Kinase MB 107.2 ng/ml (0.5-3.6) Creatine Kinase MB Ratio 5.3 (0-3.0) Troponin I 73.200 ng/ml (0-0.045) Total Protein 6.5 gm/dl (6.4-8.2) Albumin 3.3 gm/dl (3.4-5.0) Lipase 58 U/L (73-393) Hepatitis B Surface Antigen NEG (NEG) Hepatitis B Surface Antibody NEG Bedside Hemoglobin 9.5 g/dl (12.0-16.0) 8.8 g/dl (12.0-16.0) Bedside Hematocrit 28 % (37-47) 26 % (37-47) Bedside Sodium 135 mEq/L (135-144) 136 mEq/L (135-144) Bedside Potassium 7.3 mEq/L (3.3-5.0) 6.5 mEq/L (3.3-5.0) Bedside Chloride 111 mEq/L (101-112) 107 mEq/L (101-112) Bedside Total CO2 10 mEq/l (24-31) 9 mEq/l (24-31) Bedside Blood Urea Nitrogen 115 mg/dl (7-18) 114 mg/dl (7-18) Bedside Creatinine 7.8 mg/dl (0.6-1.3) 6.9 mg/dl (0.6-1.3) Bedside Glucose (other) 192 mg/dl (70-99) 190 mg/dl (70-99) Bedside Ionized Calcium (Bogdan) 1.05 mmol/l (1.12-1.32) 1.13 mmol/l (1.12-1.32) Kaolin Activated Coagulation Time 209 SECONDS (94-140) Test 09/10/16 06:25 09/10/16 06:32 09/10/16 06:56 09/10/16 07:42 Bedside Hemoglobin 8.2 g/dl (12.0-16.0) 7.5 g/dl (12.0-16.0) Bedside Hematocrit 24 % (37-47) 22 % (37-47) Kaolin Activated Coagulation Time 209 SECONDS (94-140) Bedside Sodium 138 mEq/L (135-144) 141 mEq/L (135-144) Bedside Potassium 6.1 mEq/L (3.3-5.0) 5.5 mEq/L (3.3-5.0) Bedside Chloride 109 mEq/L (101-112) Bedside Total CO2 12 mEq/l (24-31) Anion Gap 24.0 mmol/L (16-25) Bedside Blood Urea Nitrogen 117 mg/dl (7-18) Bedside Creatinine 6.8 mg/dl (0.6-1.3) Bedside Glucose (other) 175 mg/dl (70-99) Bedside Ionized Calcium (Bogdan) 1.12 mmol/l (1.12-1.32) Bedside Blood Gas pH (LAB) 6.95 (7.35-7.45) 7.19 (7.35-7.45) 7.18 (7.35-7.45) Bedside Blood Gas pCO2 (LAB) 41 mmHg (35-46) 45 mmHg (35-46) 41 mmHg (35-46) Bedside Blood Gas pO2 (LAB) 175 mmHg (80-95) 157 mmHg (80-95) 157 mmHg (80-95) Bedside Blood Gas HCO3 (LAB) 9 meq/L (19-24) 17 meq/L (19-24) 15 meq/L (19-24) Bedside Blood Gas Total CO2 10 mEq/l (24-31) 18 mEq/l (24-31) 16 mEq/l (24-31) Bedside Blood Gas Base Excess (LAB) -23.0 meq/L (-9-1.8) -11.0 meq/L (-9-1.8) -13.0 meq/L (-9-1.8) Bedside Blood Gas O2 Saturation 98.0 % (90-95) 99.0 % (90-95) 99.0 % (90-95) Test 09/10/16 07:47 09/10/16 09:53 09/10/16 09:58 09/10/16 11:30 Bedside Glucose (other) 171 mg/dl (70-99) 198 mg/dl (70-99) Blood Gas Sample Site Art Line Bedside Blood Gas pH (LAB) 7.21 (7.35-7.45) Bedside Blood Gas pCO2 (LAB) 37 mmHg (35-46) Bedside Blood Gas pO2 (LAB) 131 mmHg (80-95) Bedside Blood Gas HCO3 (LAB) 15 meq/L (19-24) Bedside Blood Gas Total CO2 16 mEq/l (24-31) Bedside Blood Gas Base Excess (LAB) -13.0 meq/L (-9-1.8) Bedside Blood Gas O2 Saturation 99.0 % (90-95) José Test NA Oxygen Delivery Device Ventilator Bedside Oxygen Rate (breaths/min) 18 Blood Gas Minute Ventilation 11.7 Bedside FiO2 100 % Blood Gas Tidal Volume 400 Blood Gas PEEP 5 Urine Color DK YELLOW Urine Appearance TURBID (CLEAR) Urine pH 5.0 (4.5-7.5) Urine Specific [place] 1.035 (1.000-1.030) Urine Protein 3+ (NEG) Urine Glucose (UA) NEG (NEG) Urine Ketones TRACE (NEG) Urine Occult Blood 2+ (NEG) Urine Nitrite NEG (NEG) Urine Bilirubin NEG (NEG) Urine Urobilinogen NEG (NEG) Urine Leukocyte Esterase LARGE (NEG) Urine WBC (Auto) >30 /hpf (0-5) Urine RBC (Auto) 10-30 /hpf (0-4) Urine Hyaline Casts (Auto) >30 /lpf (0-5) Urine Epithelial Cells (Auto) >30 /lpf (0-5) Urine Bacteria (Auto) 4+ (NEG) Urine Pathogenic Casts 5-10 GRANULAR CASTS /lpf (0) Urine Yeast (Auto) (NONE PRSENT) Test 09/10/16 12:09 Bedside Glucose (other) 164 mg/dl (70-99) Medications Current Inpatient Medications Medications (Trade) Dose Ordered Sig/Tad Route Start Time Stop Time Status Last Admin Dose Admin Sodium Bicarbonate/ Sodium Chloride (Sodium Bicarbonate 8.4% Inj/1/2 Nss 1000ml) 1,150 ml @ 150 mls/hr [id number] IV 09/10/16 07:00 09/10/16 14:39 09/10/16 09:01 150 MLS/HR Metoprolol Tartrate (Lopressor Tab) 25 mg Q12 PO 09/10/16 09:00 10/10/16 08:59 Ticagrelor (Brilinta Cap) 90 mg BID PO 09/10/16 21:00 10/10/16 20:59 Aspirin (Ecotrin Tab) 81 mg QAM PO 09/11/16 09:00 10/11/16 08:59 Atorvastatin Calcium (Lipitor Tab) 80 mg HS PO 09/10/16 21:00 10/10/16 20:59 Glucose (Glucose 40% Gel) 15-30 GRAMS 15 GRAMS... UD PRN PO 09/10/16 07:15 10/10/16 07:14 Glucose (Glucose Chew Tab) 4-8 Tablets 4 Tabl... UD PRN PO 09/10/16 07:15 10/10/16 07:14 Dextrose (Dextrose 50% 50ML Syringe) 25-50ML OF 50% DW IV FOR... UD PRN IV 09/10/16 07:15 10/10/16 07:14 Glucagon 1 mg 1 mg UD PRN SQ 09/10/16 07:15 10/10/16 07:14 Eptifibatide (Integrilin Inj) 100 ml @ 6 mls/hr [id number] IV 09/10/16 08:00 09/10/16 19:00 09/10/16 08:59 6 MLS/HR Miscellaneous 1 ea 1 ea ONE ONCE N/A 09/10/16 19:00 09/10/16 19:01 Midazolam HCl (Midazolam 125MG/ 250ML D5w) 250 ml @ 0 mls/hr Q0M PRN IV 09/10/16 08:15 10/10/16 08:14 Epoetin Adis 02754 units 10,000 units 0900 IV. 09/10/16 09:00 09/10/16 18:00 Dobutamine HCl (DOBUTamine / D5W) 250 ml @ 0 mls/hr Q0M PRN IV 09/10/16 09:15 10/10/16 09:14 Pneumococcal Polysaccharide Vaccine (Pneumovax-23 Inj) 25 mcg ONCE ONCE IM. 09/10/16 11:45 09/10/16 11:46 UNV Chlorhexidine Gluconate (Peridex Oral Soln) 15 ml BID MT 09/10/16 21:00 10/10/16 20:59 UNV Chlorhexidine Gluconate (Peridex Oral Soln) 15 ml 1208 ONCE MT 09/10/16 12:08 09/10/16 12:09 UNV Nystatin (Mycostatin Susp) 5 ml QID PO 09/10/16 13:00 09/20/16 12:59 UNV Impression (1) Kidney failure (2) Hyperkalemia (3) Bradycardia (4) Acute myocardial infarction (5) Type 2 diabetes mellitus Recommendations Patient seen & examined on HD. Treatment discussed w/ HD RN. Femoral catheter is running A --> A at Qb 250 cc/min. Patient required initiation of Dobutamine for blood pressure support. She has been transfused 2 U PRBC. Unable to UF due to hypotension. Will continue HD for correction of hyperkalemia and azotemia
[2016-09-10] MEDS: NYSTATIN SUSP 500,000 U/5 ML UDC PO SCH ×3 (13:00→21:06)
[2016-09-10] MEDS ORDERED: CHLORHEXIDINE GLUCONATE 0.12% 480 ML MT ONE (13:00)
[2016-09-10 13:49] LABS: HEMATOCRIT 27.1 % (37-47)
--- NOTE | 2016-09-10 13:59 | Critical Care Consultation ---
Critical Care Consultation Date of Consultation: September 10, 2016. Attending Physician: Manolo Moon M.D. Reason for Consultation: ST elevation OK, acute respiratory insufficiency History of Present Illness History is obtained from the patient's daughter and medical records. Patient is a 75-year-old female who is been feeling unwell since Tuesday, patient became acutely worse in the late hours the day on September 09. Patient's daughter called the ambulance and was transported to [facility] for further evaluation and treatment. Main complaint at that time was right lower abdominal pain. In the ED the patient was found to have acute ST elevation OK and was taken to the cardiac lab animal technologist for emergent percutaneous intervention. In the Foiling Machine Adjuster the patient experienced acute respiratory insufficiency and required intubation by the emergency department physician. In discussion with the dope heater she had acute thrombus in the right coronary artery, they were able to remove this thrombus and had adequate flow through the right coronary. She still has a lesion in the left anterior descending artery, however this is not the culprit lesion and not affecting the patient at this time. She was transported from the Foiling Machine Adjuster to the ICU for further evaluation and management. In bedside discussion with cardiology she was found to have persistent ST elevation after completion of the cardiac cath on EKG obtained at the end of the procedure. In the ICU plans were made to start emergent hemodialysis. The patient has chronic renal insufficiency, she was seen by [facility] nephrology approximately one year ago advised to start hemodialysis and did not follow-up. Was confirmed with the patient's daughter that she did not want to undergo dialysis and refused further evaluation. In the cardiac lab animal technologist a temporary dialysis catheter was placed into the right femoral vein. Attempts were made to start the patient on emergent hemodialysis for hyperkalemia, the patient became acutely hypotensive, a repeat EKG was obtained which revealed ST elevations, these ST elevations were unchanged per interventional cardiology. She was found to have an acute blood loss anemia and was transfused 2 units of packed red blood cells in the setting of having active myocardial ischemia. After the blood transfusion the patient was better able to tolerate hemodialysis and at the time of this dictation is currently undergoing hemodialysis. I had an extensive discussion with the patient's daughter. The patient's daughter believes her mother does not want to undergo dialysis, and the patient is artery displeased with her current functional level. The patient was not able to achieve a improved functional level from where she currently is she would not want to undergo her Roeck measures to include CPR or cardiac resuscitation in event of cardiac arrest. I feel this is completely reasonable , the patient is now extremely likely to require chronic dialysis, in discussions with cardiology the cardiac ischemia is likely acute on chronic, there was evidence of collateralization, and there is concern for decreased cardiac function in the setting of now requiring hemodialysis. In this setting the patient's daughter states that she would not want to live. Accordingly it changed her CODE STATUS to DO NOT RESUSCITATE in event of cardiac arrest. Past Medical/Surgical History Chronic renal insufficiency Diabetes mellitus on sulfonylureas Medical noncompliance Family History Diabetes mellitus Myocardial infarction Stroke Social History Smoking Status: Former Smoker Smokeless Tobacco Use: No Alcohol Use: none Drug Use: none Marital Status: Housing Status: lives with family Occupation Status: retired Home Medications Scheduled Cholecalciferol (Vitamin D3), 1 CAP PO DAILY Felodipine (Felodipine ER), 5 MG PO DAILY Glipizide (Glucotrol), 1 TAB PO QAM Miscellaneous Medications Glipizide (Glucotrol), 0.5 TAB PO Current Inpatient Medications Current Inpatient Medications Medications (Trade) Dose Ordered Sig/Tad Route Start Time Stop Time Status Last Admin Dose Admin Sodium Bicarbonate/ Sodium Chloride (Sodium Bicarbonate 8.4% Inj/1/2 Nss 1000ml) 1,150 ml @ 150 mls/hr [id number] IV 09/10/16 07:00 09/10/16 14:39 09/10/16 09:01 150 MLS/HR Metoprolol Tartrate (Lopressor Tab) 25 mg Q12 PO 09/10/16 09:00 10/10/16 08:59 Ticagrelor (Brilinta Cap) 90 mg BID PO 09/10/16 21:00 10/10/16 20:59 Aspirin (Ecotrin Tab) 81 mg QAM PO 09/11/16 09:00 10/11/16 08:59 Atorvastatin Calcium (Lipitor Tab) 80 mg HS PO 09/10/16 21:00 10/10/16 20:59 Glucose (Glucose 40% Gel) 15-30 GRAMS 15 GRAMS... UD PRN PO 09/10/16 07:15 10/10/16 07:14 Glucose (Glucose Chew Tab) 4-8 Tablets 4 Tabl... UD PRN PO 09/10/16 07:15 10/10/16 07:14 Dextrose (Dextrose 50% 50ML Syringe) 25-50ML OF 50% DW IV FOR... UD PRN IV 09/10/16 07:15 10/10/16 07:14 Glucagon 1 mg 1 mg UD PRN SQ 09/10/16 07:15 10/10/16 07:14 Eptifibatide (Integrilin Inj) 100 ml @ 6 mls/hr [id number] IV 09/10/16 08:00 09/10/16 19:00 09/10/16 08:59 6 MLS/HR Miscellaneous 1 ea 1 ea ONE ONCE N/A 09/10/16 19:00 09/10/16 19:01 Midazolam HCl (Midazolam 125MG/ 250ML D5w) 250 ml @ 0 mls/hr Q0M PRN IV 09/10/16 08:15 10/10/16 08:14 Epoetin Adis 21941 units 10,000 units 0900 IV. 09/10/16 09:00 09/10/16 18:00 09/10/16 13:03 10,000 UNITS Dobutamine HCl (DOBUTamine / D5W) 250 ml @ 0 mls/hr Q0M PRN IV 09/10/16 09:15 10/10/16 09:14 Chlorhexidine Gluconate (Peridex Oral Soln) 15 ml BID MT 09/10/16 21:00 10/10/16 20:59 Nystatin (Mycostatin Susp) 5 ml QID PO 09/10/16 13:00 09/20/16 12:59 Review of Systems Unable to obtain due to patient condition, intubation Physical Exam Date Time Temp Pulse Resp B/P Pulse Ox O2 Delivery O2 Flow Rate FiO2 09/10/16 12:00 Mechanical Ventilator 80 09/10/16 12:00 80 09/10/16 11:45 100 09/10/16 10:45 97 26 90 09/10/16 10:30 106 23 79 09/10/16 10:30 80 09/10/16 10:15 107 22 79 09/10/16 09:45 109 22 80 09/10/16 09:30 118 21 100 09/10/16 09:10 52 18 78/46 09/10/16 08:37 84 20 90/67 99 09/10/16 08:30 81 20 92 09/10/16 08:15 83 21 96 09/10/16 08:00 92 25 100 09/10/16 08:00 36.5 49 14 118/79 98 Mechanical Ventilator 100 09/10/16 08:00 Mechanical Ventilator 80 09/10/16 07:45 86 9 118/79 100 09/10/16 07:40 100 09/10/16 07:30 94 0 100 09/10/16 07:15 100 09/10/16 07:01 113 10 159/72 98 Ambu-Bag 15 09/10/16 06:56 117 10 155/95 98 Ambu-Bag 15 09/10/16 05:13 57 20 108/61 96 Nasal Cannula 4.0 09/10/16 05:11 94 Nasal Cannula 4.0 09/10/16 04:56 43 09/10/16 04:50 89 4.0 09/10/16 04:50 36.5 49 22 121/62 96 Nasal Cannula 4.0 General Appearance: moderate distress Head: normocephalic, atraumatic Eyes: other (pupils 3 mm and sluggishly reactive) ENT: other (orotracheally intubated) Neck: trachea midline, no thyromegaly Respiratory: rhonchi (bilaterally) Cardiovasular: normal S1S2, irregular rate (tachycardia) Abdomen: hypoactive bowel sounds Genitourinary - Female: external genitalia normal Upper Extremities: no edema, other (TR band present on the right breast no hematoma noted) Lower Extremities: no edema, other (temporary hemodialysis catheter in the right groin) Pulses: radial (R) (1+), radial (L) (1+) Neuro: other (GCS 7T) Laboratory Results Last 24 Hours Test 09/10/16 04:54 09/10/16 04:55 09/10/16 05:50 09/10/16 05:51 White Blood Count 18.33 K/uL Red Blood Count 2.99 M/uL Hemoglobin 8.9 g/dL Hematocrit 28.1 % Mean Corpuscular Volume 94.0 fL Mean Corpuscular Hemoglobin 29.8 pg Mean Corpuscular Hemoglobin Concent 31.7 g/dl Platelet Count 312 K/uL Mean Platelet Volume 10.8 fL Neutrophils (%) (Auto) 88.4 % Lymphocytes (%) (Auto) 3.7 % Monocytes (%) (Auto) 6.5 % Eosinophils (%) (Auto) 0.0 % Basophils (%) (Auto) 0.1 % Neutrophils # (Auto) 16.21 K/uL Lymphocytes # (Auto) 0.68 K/uL Monocytes # (Auto) 1.20 K/uL Eosinophils # (Auto) 0.00 K/uL Basophils # (Auto) 0.01 K/uL RDW Standard Deviation 51.3 fL RDW Coefficient of Variation 15.1 % Immature Granulocyte % (Auto) 1.3 % Immature Granulocyte # (Auto) 0.23 K/uL Nucleated RBC Absolute Count (auto) 0.09 K/uL Nucleated Red Blood Cells % 0.5 % Ovalocytes 1+ Echinocytes 1+ Prothrombin Time 15.8 SECONDS Prothromb Time International Ratio 1.5 Activated Partial Thromboplast Time 27.8 SECONDS Partial Thromboplastin Ratio 1.1 Sodium Level 138 mmol/L Potassium Level 7.2 mmol/L Chloride Level 110 mmol/L Carbon Dioxide Level 8 mmol/L Anion Gap 20.0 mmol/L 23.0 mmol/L 27.0 mmol/L Blood Urea Nitrogen 100 mg/dl Creatinine 7.30 mg/dl Est Creatinine Clear Calc Drug Dose 6.4 ml/min Estimated GFR () 5.7 Estimated GFR (Non- 4.9 BUN/Creatinine Ratio 13.6 Random Glucose 187 mg/dl Calcium Level 7.8 mg/dl Magnesium Level 2.5 mg/dl Total Bilirubin 6.5 mg/dl Direct Bilirubin 0.4 mg/dl Aspartate Amino Transf (AST/SGOT) 774 U/L Alanine Aminotransferase (ALT/SGPT) 891 U/L Alkaline Phosphatase 82 U/L Total Creatine Kinase 2041 U/L Creatine Kinase MB 107.2 ng/ml Creatine Kinase MB Ratio 5.3 Troponin I 73.200 ng/ml Total Protein 6.5 gm/dl Albumin 3.3 gm/dl Lipase 58 U/L Hepatitis B Surface Antigen NEG Hepatitis B Surface Antibody NEG Bedside Hemoglobin 9.5 g/dl 8.8 g/dl Bedside Hematocrit 28 % 26 % Bedside Sodium 135 mEq/L 136 mEq/L Bedside Potassium 7.3 mEq/L 6.5 mEq/L Bedside Chloride 111 mEq/L 107 mEq/L Bedside Total CO2 10 mEq/l 9 mEq/l Bedside Blood Urea Nitrogen 115 mg/dl 114 mg/dl Bedside Creatinine 7.8 mg/dl 6.9 mg/dl Bedside Glucose (other) 192 mg/dl 190 mg/dl Bedside Ionized Calcium (Bogdan) 1.05 mmol/l 1.13 mmol/l Kaolin Activated Coagulation Time 209 SECONDS Test 09/10/16 06:25 09/10/16 06:32 09/10/16 06:56 09/10/16 07:42 Bedside Hemoglobin 8.2 g/dl 7.5 g/dl Bedside Hematocrit 24 % 22 % Kaolin Activated Coagulation Time 209 SECONDS Bedside Sodium 138 mEq/L 141 mEq/L Bedside Potassium 6.1 mEq/L 5.5 mEq/L Bedside Chloride 109 mEq/L Bedside Total CO2 12 mEq/l Anion Gap 24.0 mmol/L Bedside Blood Urea Nitrogen 117 mg/dl Bedside Creatinine 6.8 mg/dl Bedside Glucose (other) 175 mg/dl Bedside Ionized Calcium (Bogdan) 1.12 mmol/l Bedside Blood Gas pH (LAB) 6.95 7.19 7.18 Bedside Blood Gas pCO2 (LAB) 41 mmHg 45 mmHg 41 mmHg Bedside Blood Gas pO2 (LAB) 175 mmHg 157 mmHg 157 mmHg Bedside Blood Gas HCO3 (LAB) 9 meq/L 17 meq/L 15 meq/L Bedside Blood Gas Total CO2 10 mEq/l 18 mEq/l 16 mEq/l Bedside Blood Gas Base Excess (LAB) -23.0 meq/L -11.0 meq/L -13.0 meq/L Bedside Blood Gas O2 Saturation 98.0 % 99.0 % 99.0 % Test 09/10/16 07:47 09/10/16 09:03 09/10/16 09:53 09/10/16 09:58 Bedside Glucose (other) 171 mg/dl 198 mg/dl Hemoglobin 7.7 g/dL Hematocrit 25.2 % Blood Gas Sample Site Art Line Bedside Blood Gas pH (LAB) 7.21 Bedside Blood Gas pCO2 (LAB) 37 mmHg Bedside Blood Gas pO2 (LAB) 131 mmHg Bedside Blood Gas HCO3 (LAB) 15 meq/L Bedside Blood Gas Total CO2 16 mEq/l Bedside Blood Gas Base Excess (LAB) -13.0 meq/L Bedside Blood Gas O2 Saturation 99.0 % José Test NA Oxygen Delivery Device Ventilator Bedside Oxygen Rate (breaths/min) 18 Blood Gas Minute Ventilation 11.7 Bedside FiO2 100 % Blood Gas Tidal Volume 400 Blood Gas PEEP 5 Test 09/10/16 11:30 09/10/16 11:50 09/10/16 12:09 Urine Color DK YELLOW Urine Appearance TURBID Urine pH 5.0 Urine Specific [place] 1.035 Urine Protein 3+ Urine Glucose (UA) NEG Urine Ketones TRACE Urine Occult Blood 2+ Urine Nitrite NEG Urine Bilirubin NEG Urine Urobilinogen NEG Urine Leukocyte Esterase LARGE Urine WBC (Auto) >30 /hpf Urine RBC (Auto) 10-30 /hpf Urine Hyaline Casts (Auto) >30 /lpf Urine Epithelial Cells (Auto) >30 /lpf Urine Bacteria (Auto) 4+ Urine Pathogenic Casts 5-10 GRANULAR CASTS /lpf Urine Yeast (Auto) Bedside Glucose (other) 164 mg/dl Diagnostic Results CHEST ONE VIEW PORTABLE CLINICAL HISTORY: Atypical chest pain COMPARISON STUDY: No previous studies for comparison. FINDINGS: The heart is enlarged. There is radiographic evidence of mild congestive failure/fluid overload. There are bibasal airspace opacities likely secondary to edema. An inflammatory process could appear similar and clinical correlation is advocated. Small pleural effusions are suspected. IMPRESSION: 1. Radiographic evidence of pulmonary vascular congestion with suspected small bilateral pleural effusions 2. Bibasal airspace opacities. While likely representing focal edema, an infectious process could appear similar and clinical correlation in this regard is advocated Electronically signed by: Stephane Nichols M.D. 09/10/2016 6:42 AM Dictated Date/Time: 09/10/2016 6:40 AM Assessment & Plan (1) Anemia (2) Kidney failure (3) Acute myocardial infarction (4) Hyperkalemia (5) Bradycardia (6) Acute on chronic renal failure (7) Type 2 diabetes mellitus Reason Critically Ill: ST elevation OK, acute on chronic kidney failure requiring emergent hemodialysis PLAN: Neuro: Sedation with Versed Resp: Full ventilatory support, goal pH greater than 7.0 CV: Blood transfusion to keep hemoglobin greater than 10, dobutamine for hypotension Fluids/Renal: Patient was previously on bicarbonate, currently undergoing hemodialysis for acid-base and hyperkalemia correction ID: Monitor fever curve GI/Nutrition: Transaminitis likely secondary to shock liver, place a OG-tube to give Brilinta Heme: Acute anemia keep hemoglobin greater than [address] elevations, on Integrilin status post Endocrine: Patient on sulfonylureas in the setting of acute renal failure, we' ll not cover with insulin at this point over concerns of precipitous hypoglycemia. If blood sugars greater than 250 will add sliding-scale of greater than 300 we'll consider adding insulin infusion. IV access: Right hemodialysis catheter with infusion port placed 09/10/2016 Right radial arterial line placed 09/10/2016 CODE STATUS: DO NOT RESUSCITATE in event of cardiac arrest. I have personally spent 95 minutes of critical care time in the direct management of this patient. This is a life/limb threatening event. This includes time spent evaluating patient, direct bedside care, chart review, placing orders, interpretation of diagnostic studies, discussion with consultants, patient, and family members, as well as other required patient management activities. This time is exclusive of all separately billable procedures, and teaching time and separate from and in addition to any other critical care service time. Problem Qualifiers (1) Acute myocardial infarction: Myocardial infarction ST status: ST elevation myocardial infarction Involved coronary artery: unspecified coronary artery Qualified Codes: I21.3 - ST elevation (STEMI) myocardial infarction of unspecified site (2) Acute on chronic renal failure: Acute renal failure type: unspecified Chronic kidney disease stage: stage 5, not on chronic dialysis Qualified Codes: N17.9 - Acute kidney failure, unspecified; N18.5 - Chronic kidney disease, stage 5
--- NOTE | 2016-09-10 14:11 | Progress Note ---
Progress Note Date of Service September 10, 2016. Progress Note 1400: Consent form for PRBCs was obtained from daughter, who is POA for patient. I explained to the patient that blood had to be given emergently earlier in the day due to symptomatic anemia and hemodynamic instability. Daughter was in agreement with pre-emptive transfusion Questions were answered and blood consent forms were signed and placed in patient's chart.
--- NOTE | 2016-09-10 14:22 | DIAGNOSTIC IMAGING REPORT ---
KUB CLINICAL HISTORY: OG tube placement COMPARISON STUDY: No previous studies for comparison. FINDINGS: Nasogastric tube placed in the mid stomach. Nonobstructive bowel pattern. IMPRESSION: Nasogastric tube placed in the mid stomach Electronically signed by: Richmond Gonzáles M.D. 09/10/2016 2:20 PM Dictated Date/Time: 09/10/2016 2:20 PM
--- NOTE | 2016-09-10 14:23 | DIAGNOSTIC IMAGING REPORT ---
CHEST ONE VIEW PORTABLE CLINICAL HISTORY: ET tube placement verification COMPARISON STUDY: Chest radiograph September 10, 2016 at 4:55 AM. FINDINGS: The tip of the endotracheal tube is 3.7 cm above the kelsey. The tip of the nasogastric tube is below the lower aspect of this image but at least within the distal body of the stomach. There is no pneumothorax. Pulmonary vascular congestion with pulmonary edema is again noted. There has been slight progression. Bibasilar opacities with bilateral pleural effusions have slightly progressed. Cardiomegaly is again noted. IMPRESSION: 1. Satisfactory positioning of the endotracheal tube. 2. Interval progression of pulmonary edema, bilateral pleural effusions and associated bibasilar opacities. Electronically signed by: Trent Tovar M.D. 09/10/2016 2:22 PM Dictated Date/Time: 09/10/2016 2:20 PM
--- NOTE | 2016-09-10 15:31 | ECHOCARDIOGRAM REPORT ---
*NOTICE TO RECEIVING [employer]Y This information is strictly Confidential and protected under [place] law. [place] law prohibits you from making any further disclosure of this information unless further disclosure is expressly permitted by the written consent of the person to whom it pertains or is authorized by law. A general authorization for the release of medical or other information is not sufficient for this purpose. Hospital accepts no responsibility if the information is made available to any other person, INCLUDING THE PATIENT. Interpretation Summary * Name: CYNTHIA COFFEY Study Date: 09/10/2016 01:06 PM BP: 78/46 mmHg * Patient Location: [facility] HR: 122 * : 1940 (M/d/yyyy) Gender: Female Height: 63 in * Age: 75 yrs Ethnicity: CA Weight: 166 lb * Ordering Physician: Beck Foley * Referring Physician: DOMI * Performed By: Kisha Jiménez RDCS * * Reason For Study: AMI * BSA: 1.8 m2 * -- Conclusions -- * 1. Normal LV size. Mild concentric LVH. * 2. Mild LV dysfunction. LVEF 40-45%. Inferior and posterior wall akinesis. * 3. Mildly dilated RV with normal RV function. * 4. Moderately dilated RA. * 5. Trace MR, Trace TR. * 6. Mild pulmonary hypertension. Est PASP 40-45 mmHg. * 7. Grade I diastolic dysfunction. * 8. No prior studies for comparison. Procedure Details * A complete two-dimensional transthoracic echocardiogram was performed (2D, M-mode, Doppler and color flow Doppler). Left Ventricle * The left ventricle is normal in size. * There is mild concentric left ventricular hypertrophy. * Ejection Fraction = 40-45%. * There is inferior wall akinesis. * There is posterior wall akinesis. Right Ventricle * The right ventricle is mildly dilated. * The right ventricular systolic function is normal as assessed by tricuspid annular plane systolic excursion (TAPSE) (normal >1.5 cm). Atria * The left atrial size is normal. * The right atrium is moderately dilated. * There is no evidence of atrial septal defect, but resolution does not allow assessment for a patent foramen ovale. Mitral Valve * The mitral valve is grossly normal. * There is no mitral valve stenosis. * There is trace mitral regurgitation. Tricuspid Valve * The tricuspid valve is not well visualized, but is grossly normal. * There is no tricuspid stenosis. * There is trace tricuspid regurgitation. * Right ventricular systolic pressure is elevated at 40-50mmHg. Aortic Valve * The aortic valve is normal in structure and function. * The aortic valve opens well. * No hemodynamically significant valvular aortic stenosis. Pulmonic Valve * The pulmonary valve is inadequately visualized, but the Doppler data is adequate for interpretation. * There is no pulmonic valvular stenosis. * There is no significant pulmonary regurgitation. Great Vessels * The aortic root and proximal ascending aorta are normal sized. Pericardium/Pleural * There is no pericardial effusion. * Moderate size left pleural effusion. Great Vessels * Normal inferior vena cava size and collapsability with sniff indicates a normal right atrial pressure of 3 mmHg Left Ventricular Diastolic Function * Grade I diastolic dysfunction, (abnormal relaxation pattern). MMode 2D Measurements and Calculations IVSd 1.2 cm IVSs 1.7 cm LVIDd 4.9 cm LVIDs 3.9 cm LVPWd 1.5 cm LVPWs 1.6 cm IVS/LVPW 0.83 FS 20.4 % EDV(Teich) 112.5 ml ESV(Teich) 65.7 ml EF(Teich) 41.6 % EDV(cubed) 117.2 ml ESV(cubed) 59.1 ml EF(cubed) 49.6 % % IVS thick 36.8 % % LVPW thick 9.7 % LV mass(C)d 272.7 grams LV mass(C)dI 152.7 grams/m\S\2 LV mass(C)s 266.2 grams LV mass(C)sI 149.0 grams/m\S\2 SV(Teich) 46.8 ml SI(Teich) 26.2 ml/m\S\2 SV(cubed) 58.1 ml SI(cubed) 32.5 ml/m\S\2 Ao root diam 3.0 cm Ao root area 7.2 cm\S\2 LA dimension 3.2 cm LA/Ao 1.0 LVAd ap4 26.7 cm\S\2 LVLd ap4 7.8 cm EDV(MOD-sp4) 76.0 ml LVAs ap4 19.7 cm\S\2 LVLs ap4 8.0 cm ESV(MOD-sp4) 41.7 ml EF(MOD-sp4) 45.1 % LVAd ap2 26.4 cm\S\2 LVLd ap2 7.9 cm EDV(MOD-sp2) 78.7 ml LVAs ap2 17.2 cm\S\2 LVLs ap2 6.9 cm ESV(MOD-sp2) 40.5 ml EF(MOD-sp2) 48.5 % SV(MOD-sp4) 34.3 ml SI(MOD-sp4) 19.2 ml/m\S\2 SV(MOD-sp2) 38.2 ml SI(MOD-sp2) 21.4 ml/m\S\2 Doppler Measurements and Calculations Ao V2 max 148.4 cm/sec Ao max PG 8.8 mmHg Ao max PG (full) 3.9 mmHg LV V1 max PG 4.9 mmHg LV V1 max 110.6 cm/sec TR max gregorio 284.1 cm/sec
[2016-09-10] MEDS ORDERED: PANTOprazole SOD 40 MG TAB PO ONE (16:00)
[2016-09-10] MEDS ORDERED: NURSING VERBAL MED ORDER ONE ×5 (16:15→23:00)
[2016-09-10] MEDS ORDERED: PANTOprazole INJ 40 MG in SYRINGE 0 ML IV ONE (16:30)
[2016-09-10 17:08] LABS: ISTAT ARTERIAL BLOOD GAS HCO3 19 meq/L (19-24); ISTAT ARTERIAL BLOOD GAS PCO2 32 mmHg (35-46); ISTAT ARTERIAL BLOOD GAS PO2 137 mmHg (80-95); ISTAT ARTERIAL BLOOD GAS pH 7.38 (7.35-7.45); ISTAT CARBON DIOXIDE 20 mEq/l (24-31); ISTAT DELIVERY SYSTEM Ventilator; ISTAT FIO2 60 %; ISTAT PEEP 5; ISTAT RATE 16; ISTAT SITE Art Line; VE 9.6; Vt 400
[2016-09-10 18:21] LABS: HEMATOCRIT 25.1 % (37-47)
[2016-09-10] MEDS ORDERED: Integrelin infusion --> STOP ORDER ONE (19:00)
[2016-09-10] MEDS ORDERED: FENTANYL 1250MCG/250ML NSS 250 ML IV SCH (20:00)
[2016-09-10] MEDS ORDERED: HYDROmorphone INJ 1 MG/ML SYR IV PRN (20:30)
[2016-09-10] MEDS ORDERED: ACETAMINOPHEN 650 MG SUPP PR PRN (20:30)
[2016-09-10] MEDS ORDERED: ATORVASTATIN 40 MG TAB PO SCH (21:00)
[2016-09-10] MEDS: TICAGRELOR 90 MG TAB PO SCH (21:06)
[2016-09-10] MEDS: CHLORHEXIDINE GLUCONATE 0.12% 480 ML MT SCH (21:06)
[2016-09-10] MEDS: HEPARIN SOD 5000 UNIT/0.5 ML CARP SQ SCH (21:08)
[2016-09-10] MEDS ORDERED: PHENYLEPHRINE HCL INJ 20 MG in DEXTROSE 5% 500ML 500 ML IV PRN (21:45)
[2016-09-10 23:12] LABS: ISTAT ARTERIAL BLOOD GAS HCO3 34 meq/L (19-24); ISTAT ARTERIAL BLOOD GAS PCO2 41 mmHg (35-46); ISTAT ARTERIAL BLOOD GAS PO2 48 mmHg (80-95); ISTAT ARTERIAL BLOOD GAS pH 7.52 (7.35-7.45); ISTAT CARBON DIOXIDE 35 mEq/l (24-31); ISTAT HEMATOCRIT 24 % (37-47); ISTAT HEMOGLOBIN 8.2 g/dl (12.0-16.0); ISTAT SODIUM 143 mEq/L (135-144)
[2016-09-10] MEDS ORDERED: HYDROmorphone INJ 1 MG/ML SYR IV STA ×2 (23:20→23:24)
[2016-09-10] MEDS ORDERED: DiphenhydrAMINE HCL 50 MG/ML VIAL IV STA (23:24)
[2016-09-10] MEDS ORDERED: CALCIUM CHLORIDE 10% 10 ML SYR IV STA (23:28)
[2016-09-10] MEDS ORDERED: DiphenhydrAMINE INJ 25 MG in SYRINGE 0 ML IV ONE (23:30)
[2016-09-10] MEDS ORDERED: SODIUM CHLORIDE 0.9% IV STA (23:45)
[2016-09-10] MEDS ORDERED: CALCIUM CHLORIDE IV STA (23:45)
[2016-09-11] VITALS (43 sets, daily range): BP systolic 66–156; BP diastolic 26–54; PULSE 97–139; TEMP 38–39.2; O2SAT 88–98
[2016-09-11 00:45] LABS: HEMATOCRIT 29.6 % (37-47)
[2016-09-11] MEDS: EPINEPHRINE HCL 4 MG in DEXTROSE 5% 250ML IV PRN ×2 (02:05→06:03)
--- NOTE | 2016-09-11 03:55 | CARDIOLOGY CONSULTATION ---
DATE OF CONSULTATION: 09/10/2016 CONSULTATION REQUESTED BY: Emergency Room physician, Dr. Ocasio. REASON FOR CONSULTATION: Heart alert. HISTORY OF PRESENT ILLNESS: Ms. Baugh is a 75-year-old woman with a history of chronic kidney disease, diabetes, hypertension; who had been feeling ill for the last 2 weeks, worse over the last several days. The night of presentation developed more acute. Back and abdominal pain as well as worsening nausea and vomiting, as a result her family called EMS. Also of note, patient did have an episode of questionable syncope 2 or 3 days ago. Upon EMS arrival, patient was noted to have inferior ST elevations and en route to ED a heart alert was called. Upon arrival, patient was hemodynamically stable, bradycardic down in the 40s and 50s with prolonged first degree AV block and episodes of second-degree AV block, Mobitz type 1. The patient was also noted to be in acute on chronic renal failure with creatinine of 7.3, potassium of 7.3 and initial bicarbonate of 9. Decision was made to proceed to the cardiac catheterization lab for angiography and possible PCI. The patient was found to have an occluded mid RCA as well as a 70% to 80% mid LAD lesion. The patient underwent PCI with 2 drug-eluting stents placed to her RCA. The patient had slow reflow after stent placement, treated with IC Integrilin and nicardipine. Intraprocedure course was complicated by bradycardia requiring atropine and hypotension requiring dopamine. In addition, patient's oxygenation became increasingly worse during the course of the procedure and decision was made to intubate patient. Intraprocedure, patient received 6 amps of bicarbonate and 5 units of insulin as well. Post-procedure pH had risen from 7 up to 7.18 and potassium was down from initial 7.3 down to 6.1, a temporary femoral dialysis catheter was placed and nephrology was contacted for dialysis. The patient was transferred to the ICU. Since being in the ICU, patient has had issues with intermittent hypotension and bradycardia requiring initiation of dobutamine. Attempts were made to start on dialysis but complicated by hypotension. Eventually dialysis able to be performed without significant ultrafiltration. Course has also been complicated by 1 run of sustained VT with appearance concerning for torsades. This was resolved without additional intervention. Multiple conversations have been had between the ICU team as well as palliative care with family and patient is now DNR if were to arrest overnight. PAST MEDICAL HISTORY: 1. Chronic kidney disease, had previously been seen by Dr. Shipley, over a year ago but had not followed up with additional nephrology care. 2. Hypertension. 3. Type 2 diabetes. 4. Anemia. 5. Hyperlipidemia. 6. Vitamin D deficiency. 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 SOCIAL HISTORY: Former smoker. , originally from [place], moved with her . Denies significant alcohol or illicit drugs. HOME MEDICATIONS: Felodipine 5, glipizide 5. ALLERGIES: No known drug allergies. REVIEW OF SYSTEMS: Unable to be obtained due to critical illness. PHYSICAL EXAMINATION: VITAL SIGNS: Temperature 36.3, pulse 99, blood pressure 109/48, satting 100% on mechanical ventilator at 60% FiO2, respiratory rate is 28. GENERAL: The patient initially was in some distress, now intubated and sedated. LUNGS: Decreased breath sounds bilaterally. HEART: Regular rate and rhythm. No appreciable murmurs, rubs or gallops. ABDOMEN: Soft, nontender, nondistended with positive bowel sounds. EXTREMITIES: Warm. She has intact radial pulses. Her right radial artery site shows no significant procedural complications. SKIN: Shows no rashes or lesions. NEUROLOGIC: She is sedated. LABORATORY DATA: Hemoglobin up from 7.5 to 9.4 following transfusion. Last gas this morning at 7.21, 37, 131 with a bicarbonate of 16. Initial troponin on presentation was 73. Most recent labs sodium of 141, potassium of 5.5. Chest x-ray this afternoon showed interval progression of pulmonary edema with bilateral pleural effusions. Initial EKG showed prolonged first degree AV block with ventricular rate of 50, inferior ST elevations with reciprocal with borderline elevations in V5, V6. Subsequent EKG post-procedure again showed inferior ST elevations with Wenckebach Mobitz type 2, second degree AV block. Echocardiogram showed no LV size, mild concentric LVH, EF of 40% to 45% with inferior posterior wall akinesis. RV was mildly dilated with normal function. There was mild pulmonary hypertension with an estimated PA pressure 40-45 and grade 1 diastolic dysfunction. IMPRESSION AND PLAN: 1. Inferior ST segment elevation myocardial infarction status post primary percutaneous coronary intervention with drug-eluting stents to right coronary artery. 2. Acute on chronic renal disease/end-stage renal disease, requiring emergent dialysis. 3. Hyperkalemia. 4. Metabolic acidosis. 5. Respiratory failure. 6. Second-degree atrioventricular block, Mobitz type 1. 7. Nonsustained ventricular tachycardia. 8. Ischemic cardiomyopathy. 9. Anemia. 10. Diabetes. Patient at present hemodynamically stable in the intensive care unit. Post-procedure has had first session of dialysis earlier today. Going forward, we would continue on Integrilin infusion for 12 hours. We will continue on aspirin and Brilinta, going forward. I agree with dopamine for intermittent bradycardia and hypotension. No indication for pacemaker at this time. Suspect second degree Mobitz type 1 AV block is largely vagally mediated and will continue to resolve. At this time, as hemodynamically and electrically stable despite persistent ST elevations, no indication for repeat angiography. Continued volume management via dialysis with nephrology. We would continue on statin and beta mikaela as able. We will continue to follow while in the hospital. Thank you for allowing us to participate in the care of this patient. Please contact with any questions. RATNA
[2016-09-11] MEDS ORDERED: NURSING VERBAL MED ORDER ONE (05:00)
[2016-09-11] MEDS ORDERED: ACETAMINOPHEN IV 1000MG/100ML IV PRN (05:00)
[2016-09-11 05:56] LABS: HEMATOCRIT 28.9 % (37-47); MEAN CORPUSCULAR HEMOGLOBIN 29.5 pg (25-34); MEAN CORPUSCULAR HGB CONC 34.3 g/dl (32-36); MEAN PLATELET VOLUME 10.4 fL (7.4-10.4); PLATELET COUNT 236 K/uL (130-400); RED BLOOD COUNT 3.36 M/uL (4.2-5.4); WHITE BLOOD COUNT 5.15 K/uL (4.8-10.8)
[2016-09-11] MEDS: HEPARIN SOD 5000 UNIT/0.5 ML CARP SQ SCH ×2 (06:04→14:00)
[2016-09-11 06:15] LABS: BASO % 0.4 %; BASO ABS # 0.02 K/uL (0-0.2); COMPLETE YES; ECHINOCYTES 1+; EOS % 0.4 %; LYMPH % 7.4 %; LYMPH ABS # 0.38 K/uL (1.2-3.4); MONO % 9.9 %; NEUT % 80.9 %; OVALOCYTES 1+; POLYCHROMASIA 1+; VACUOLIZATION 2+
[2016-09-11 06:43] LABS: BUN/CREATININE RATIO 11.6 (10-20); CALCIUM 7.2 mg/dl (8.5-10.1); CREATININE 4.8 mg/dl (0.60-1.20); POTASSIUM 3.7 mmol/L (3.5-5.1)
[2016-09-11 07:23] LABS: ESTIMATED AVERAGE GLUCOSE 126 mg/dl; HA1C FLAG Normal (Normal)
[2016-09-11] MEDS: CHLORHEXIDINE GLUCONATE 0.12% 480 ML MT SCH (08:14)
[2016-09-11] MEDS: METOPROLOL TARTRATE 25 MG TAB PO SCH (08:14)
[2016-09-11] MEDS: TICAGRELOR 90 MG TAB PO SCH (08:14)
[2016-09-11] MEDS: NYSTATIN SUSP 500,000 U/5 ML UDC PO SCH ×2 (08:14→12:37)
--- NOTE | 2016-09-11 08:17 | DIAGNOSTIC IMAGING REPORT ---
CHEST ONE VIEW PORTABLE HISTORY: Short of breath. COMPARISON: Chest 09/10/2016. FINDINGS: Endotracheal tube and nasogastric tube are unchanged in position. No pneumothorax. The heart remains enlarged. Mild pulmonary edema and small bilateral pleural effusions have improved. Left basilar density persists. IMPRESSION: 1. Improvement in the mild pulmonary edema and small bilateral pleural effusions. Left basilar density persists. 2. Satisfactory support line placement. Electronically signed by: Goldy Weber M.D. 09/11/2016 8:16 AM Dictated Date/Time: 09/11/2016 8:15 AM
[2016-09-11 08:36] LABS: ISTAT ALLEN TEST Pass; ISTAT ARTERIAL BLOOD GAS HCO3 18 meq/L (19-24); ISTAT ARTERIAL BLOOD GAS PCO2 32 mmHg (35-46); ISTAT ARTERIAL BLOOD GAS PO2 84 mmHg (80-95); ISTAT ARTERIAL BLOOD GAS pH 7.36 (7.35-7.45); ISTAT CARBON DIOXIDE 19 mEq/l (24-31); ISTAT DELIVERY SYSTEM Ventilator; ISTAT FIO2 50 %; ISTAT PEEP 5; ISTAT RATE 16; ISTAT SITE Art Line; VE 14.2; Vt 400
[2016-09-11] MEDS ORDERED: ASPIRIN 81 MG ECTAB PO SCH (09:00)
[2016-09-11] MEDS ORDERED: EPOETIN ALFA 20,000 UNITS/ML VIAL IV SCH (10:00)
[2016-09-11] MEDS ORDERED: AMPICILLIN/SULBACTAM CONSULT ACTIVE PRN ×2 (10:45)
[2016-09-11] MEDS ORDERED: AMPICILLIN/SULBACTAM SOD INJ 3,000 MG in SODIUM CHLORIDE 0.9% 100ML 100 ML IV ONE (10:45)
[2016-09-11] MEDS ORDERED: PANTOprazole INJ 40 MG in SYRINGE 0 ML IV SCH (11:00)
[2016-09-11] MEDS ORDERED: MoRPHine SULFATE 10 MG/ML CARP/VIAL IV PRN (11:15)
[2016-09-11] MEDS ORDERED: MORPHINE SULF/NSS 250MG/250ML IV PRN (11:30)
[2016-09-11] MEDS ORDERED: SCOPOLAMINE 1.5 MG TDSY TD SCH (12:00)
--- NOTE | 2016-09-11 12:05 | Critical Care Progress Note ---
Critical Care Progress Note Date of Service September 11, 2016. ICU Day ICU Day Number: [address] Davis Subjective Intubated, sedated, minimal responsiveness, cardiogenic shock on epinephrine infusion Objective General Appearance: moderate distress Head: normocephalic, atraumatic Eyes: other (pupils 3 mm and sluggishly reactive) ENT: other (orotracheally intubated) Neck: trachea midline, no thyromegaly Respiratory: rhonchi (bilaterally) Cardiovasular: normal S1S2, irregular rate (tachycardia) Abdomen: hypoactive bowel sounds Genitourinary - Female: external genitalia normal Lower Extremities: no edema, other (temporary hemodialysis catheter in the right groin) Pulses: radial (R) (1+), radial (L) (1+) Current SOFA Score SOFA Score Response (Comments) Value Platelets (x10) > 150 0 Bilirubin (mg/dL) 2.0 - 5.9 2 Kory Coma Score 6 - 9 3 Level of Hypotension Dopamine > 15 mcq or Epi > 0.1 mcq 4 Creatinine (mg/dL) 3.5 - 4.9 3 Total 12 Assessment & Plan (1) Anemia (2) Kidney failure (3) Acute myocardial infarction (4) Hyperkalemia (5) Bradycardia (6) Acute on chronic renal failure (7) Type 2 diabetes mellitus Reason Critically Ill: ST elevation NE, acute on chronic kidney failure requiring emergent hemodialysis I hadn't extensive discussion again with the patient's daughter as well as her grandsons. All in agreement that she would not want continued hemodialysis, given severe cardiomyopathy and poor prognosis all are in agreement that life sustaining treatment should also and comfort measures be initiated. Dr. Iverson was present for the discussion and in agreement as well PLAN: Neuro: Sedation with Versed Resp: Full ventilatory support, goal pH greater than 7.0 CV: Cardiogenic shock secondary to the Xochilt presentation of acute myocardial infarction Patient on epinephrine at 1.7 mcg/kg/m, Fluids/Renal: Acute on chronic renal failure, plans were to dialyze today, will not initiate dialysis as we are transitioning to comfort measures ID: Fevers, labs sent for acute blood reaction which were negative. We would start Unasyn for possible aspiration during intubation, however we are transitioning to comfort measures GI/Nutrition: Transaminitis likely secondary to shock liver slightly improved Heme: Acute anemia keep hemoglobin greater than [address] elevations, on Integrilin status post Endocrine: History of diabetes mellitus A1c 6 IV access: Right hemodialysis catheter with infusion port placed 09/10/2016 Right radial arterial line placed 09/10/2016 CODE STATUS: DO NOT RESUSCITATE transitioning to comfort measures I have personally spent 60 minutes of critical care time in the direct management of this patient. This is a life/limb threatening event. This includes time spent evaluating patient, direct bedside care, chart review, placing orders, interpretation of diagnostic studies, discussion with consultants, patient, and family members, as well as other required patient management activities. This time is exclusive of all separately billable procedures, and teaching time and separate from and in addition to any other critical care service time. Consults & Procedures Consultants: Cardiology Nephrology Procedures: Right radial left heart cath Right inguinal temperature dialysis catheter Left radial arterial line Data Medications: Current Inpatient Medications Medications (Trade) Dose Ordered Sig/Tad Route Start Time Stop Time Status Last Admin Dose Admin Metoprolol Tartrate (Lopressor Tab) 25 mg Q12 PO 09/10/16 09:00 10/10/16 08:59 Ticagrelor (Brilinta Cap) 90 mg BID PO 09/10/16 21:00 10/10/16 20:59 09/11/16 08:14 90 MG Aspirin (Ecotrin Tab) 81 mg QAM PO 09/11/16 09:00 10/11/16 08:59 Atorvastatin Calcium (Lipitor Tab) 80 mg HS PO 09/10/16 21:00 10/10/16 20:59 09/10/16 21:06 80 MG Glucose (Glucose 40% Gel) 15-30 GRAMS 15 GRAMS... UD PRN PO 09/10/16 07:15 10/10/16 07:14 Glucose (Glucose Chew Tab) 4-8 Tablets 4 Tabl... UD PRN PO 09/10/16 07:15 10/10/16 07:14 Dextrose (Dextrose 50% 50ML Syringe) 25-50ML OF 50% DW IV FOR... UD PRN IV 09/10/16 07:15 10/10/16 07:14 Glucagon 1 mg 1 mg UD PRN SQ 09/10/16 07:15 10/10/16 07:14 Midazolam HCl 250 ml @ 0 mls/hr Q0M PRN IV 09/10/16 08:15 10/10/16 08:14 09/10/16 09:30 10 MLS/HR Dobutamine HCl (DOBUTamine / D5W) 250 ml @ 0 mls/hr Q0M PRN IV 09/10/16 09:15 10/10/16 09:14 09/10/16 21:56 35 MLS/HR Chlorhexidine Gluconate (Peridex Oral Soln) 15 ml BID MT 09/10/16 21:00 10/10/16 20:59 09/11/16 08:14 15 ML Nystatin (Mycostatin Susp) 5 ml QID PO 09/10/16 13:00 09/20/16 12:59 09/11/16 08:14 5 ML Heparin Sodium (Porcine) 5000 unit 5,000 unit Q8 SQ 09/10/16 22:00 10/10/16 21:59 09/11/16 06:04 5,000 UNIT Pantoprazole Sodium 40 mg/ Syringe 10 ml @ 5 mls/min DAILY@11 IV 09/11/16 11:00 10/11/16 10:59 Fentanyl Citrate 250 ml @ 0 mls/hr Q0M IV 09/10/16 20:00 09/24/16 19:59 09/10/16 21:05 10 MLS/HR Phenylephrine HCl 20 mg/Dextrose 502 ml @ 0 mls/hr Q0M PRN IV 09/10/16 21:45 10/10/16 21:44 09/10/16 21:54 23 MLS/HR Epinephrine HCl 4 mg/Dextrose 254 ml @ 0 mls/hr Q0M PRN IV 09/10/16 23:00 10/10/16 22:59 09/11/16 06:03 42.8 MLS/HR Acetaminophen (Ofirmev Iv) 100 ml @ 400 mls/hr Q8H PRN IV 09/11/16 05:00 10/11/16 04:59 09/11/16 05:01 400 MLS/HR Epoetin Adis (Procrit Inj) 20,000 units TODAY@1000 IV 09/11/16 10:00 09/11/16 23:59 Ampicillin Sodium/ Sulbactam Sodium (Consult) 1 ea UD PRN N/A 09/11/16 10:45 10/11/16 10:44 Miscellaneous Information 1 ea 1 ea QS N/A 09/11/16 16:00 10/11/16 15:59 Morphine Sulfate/ Dextrose (Morphine Sulf/ Nss 250MG/250ML) 250 ml @ 4 mls/hr Q24H PRN IV 09/11/16 11:30 09/25/16 11:29 09/11/16 11:45 4 MLS/HR Scopolamine (Transderm-Scop Patch) 1.5 mg Q3D@0900 TD 09/11/16 12:00 10/11/16 11:59 09/11/16 11:45 1.5 MG Miscellaneous (Remove Transderm-Scop Patch) 1 ea Q3D@0859 N/A 09/14/16 08:59 10/14/16 08:58 I & O: 24-Hour Column 09/11/16 08:00 Intake Total 2358 ml Output Total 60 ml Balance 2298 ml Vital Signs: Date Time Temp Pulse Resp B/P Pulse Ox O2 Delivery O2 Flow Rate FiO2 09/11/16 10:00 38.6 113 125/48 97 09/11/16 09:45 38.7 113 119/47 97 09/11/16 09:45 38.7 113 119/47 97 09/11/16 09:15 38.8 114 37 115/47 96 09/11/16 09:00 38.8 114 37 117/48 96 09/11/16 08:45 38.9 114 38 119/48 97 09/11/16 08:15 39.0 116 39 115/42 96 09/11/16 08:00 Mechanical Ventilator 50 09/11/16 08:00 50 09/11/16 08:00 39.1 116 36 114/43 97 09/11/16 07:45 39.1 116 37 115/43 96 09/11/16 07:35 50 09/11/16 07:15 39.2 117 36 110/43 97 09/11/16 07:00 39.2 117 37 109/38 98 09/11/16 06:45 39.2 117 35 107/42 97 09/11/16 06:30 39.2 118 36 103/41 94 09/11/16 06:15 39.1 115 37 98/40 93 09/11/16 06:00 39.0 122 34 113/42 95 09/11/16 05:45 39.0 119 35 91/39 94 09/11/16 05:30 39.0 124 36 131/46 95 09/11/16 05:25 60 09/11/16 05:15 38.9 126 33 133/45 96 09/11/16 05:00 38.9 127 36 136/49 97 09/11/16 04:45 38.9 125 38 132/50 96 09/11/16 04:30 39.0 125 40 128/50 96 09/11/16 04:15 38.9 124 10 139/53 09/11/16 04:00 Mechanical Ventilator 60 09/11/16 04:00 38.9 125 40 137/46 94 09/11/16 04:00 60 09/11/16 03:45 38.8 125 38 125/41 95 09/11/16 03:30 38.7 125 36 119/39 95 09/11/16 03:15 38.7 119 36 108/33 95 09/11/16 03:00 38.6 126 36 106/36 95 09/11/16 02:45 38.5 134 33 149/41 95 09/11/16 02:30 38.4 134 33 156/43 95 09/11/16 02:20 60 09/11/16 02:15 38.4 133 33 143/38 95 09/11/16 02:00 38.3 138 31 148/40 95 09/11/16 01:45 38.3 139 30 150/39 95 09/11/16 01:30 38.2 128 32 66/26 95 09/11/16 01:15 38.2 139 30 140/37 96 09/11/16 01:00 38.1 135 29 135/36 96 09/11/16 00:45 38.1 138 29 130/35 96 09/11/16 00:30 38.0 129 29 123/34 97 09/11/16 00:15 38.0 133 28 127/35 96 09/11/16 00:00 38.0 135 28 111/54 95 09/11/16 00:00 60 09/11/16 00:00 Mechanical Ventilator 60 09/10/16 23:45 37.8 135 30 152/53 92 09/10/16 23:30 37.6 140 28 170/58 88 09/10/16 23:15 37.5 59 22 33/23 75 09/10/16 23:00 37.3 148 29 134/58 75 09/10/16 23:00 40 09/10/16 22:55 37.3 162 26 165/26 50 09/10/16 22:46 37.3 103 25 40/22 88 09/10/16 22:45 37.3 110 25 55/28 97 09/10/16 22:30 37.3 124 26 106/37 95 09/10/16 22:15 37.3 124 25 110/34 96 09/10/16 22:00 37.3 123 26 87/32 83 09/10/16 21:30 37.3 123 27 98/34 95 09/10/16 21:00 37.2 122 28 95/35 100 09/10/16 20:30 37.1 123 27 94/37 100 09/10/16 20:00 Mechanical Ventilator 40 09/10/16 20:00 37.1 123 28 95/39 99 09/10/16 20:00 40 09/10/16 19:35 40 09/10/16 19:30 37.0 124 26 91/37 100 09/10/16 19:16 37.0 126 25 93/35 99 09/10/16 19:16 37.0 126 25 93/35 99 09/10/16 19:15 37.0 125 26 88/34 99 09/10/16 19:00 36.9 125 25 89/35 99 09/10/16 19:00 36.9 125 25 89/35 99 09/10/16 18:45 36.9 127 24 87/34 99 09/10/16 18:30 36.9 126 24 80/33 100 09/10/16 18:30 36.9 126 24 80/33 100 09/10/16 18:15 36.8 125 24 87/35 99 09/10/16 18:11 36.8 123 22 87/39 100 09/10/16 18:11 36.8 123 22 87/39 100 09/10/16 18:00 36.7 120 32 113/41 100 09/10/16 18:00 36.7 120 32 113/41 100 09/10/16 17:45 36.7 113 30 114/38 100 09/10/16 17:38 36.6 112 24 99/41 89 09/10/16 17:38 36.6 112 24 99/41 89 09/10/16 17:30 36.6 114 30 101/40 92 09/10/16 17:30 36.6 114 30 101/40 92 09/10/16 17:15 36.6 106 26 93/39 99 09/10/16 17:10 40 09/10/16 17:00 36.5 105 27 98/39 96 09/10/16 17:00 36.5 105 27 98/39 96 09/10/16 16:45 36.5 105 29 104/41 91 09/10/16 16:30 36.5 104 25 106/41 99 09/10/16 16:30 36.5 104 25 106/41 99 09/10/16 16:15 36.4 102 28 112/44 90 09/10/16 16:00 36.4 97 29 103/44 95 09/10/16 16:00 60 09/10/16 16:00 Mechanical Ventilator 60 09/10/16 16:00 36.4 97 29 103/44 95 09/10/16 15:47 36.3 99 28 109/48 100 09/10/16 15:47 36.3 99 28 109/48 100 09/10/16 15:45 36.3 95 25 115/54 87 09/10/16 15:45 36.3 95 25 115/54 87 09/10/16 15:30 98 28 135/55 09/10/16 15:15 94 25 110/45 100 09/10/16 15:00 104 25 153/51 100 09/10/16 14:52 NIBP 09/10/16 14:45 105 24 100 156/52 09/10/16 14:30 80 09/10/16 14:30 111 24 100 163/51 09/10/16 14:15 116 23 100 165/54 09/10/16 14:00 122 24 94 159/45 09/10/16 13:45 122 24 94 162/47 09/10/16 13:30 122 23 100 125/53 09/10/16 13:15 121 24 100 124/53 09/10/16 13:00 122 23 100 118/40 09/10/16 12:45 119 25 100 111/40 09/10/16 12:30 114 25 100 112/49 09/10/16 12:15 111 24 100 121/52 09/10/16 12:00 Mechanical Ventilator 80 09/10/16 12:00 106 25 100 125/56 09/10/16 12:00 80 Laboratory Results: Last 24 Hours Test 09/10/16 12:09 09/10/16 15:54 09/10/16 16:57 09/10/16 18:12 Bedside Glucose (other) 164 mg/dl 128 mg/dl Blood Gas Sample Site Art Line Bedside Blood Gas pH (LAB) 7.38 Bedside Blood Gas pCO2 (LAB) 32 mmHg Bedside Blood Gas pO2 (LAB) 137 mmHg Bedside Blood Gas HCO3 (LAB) 19 meq/L Bedside Blood Gas Total CO2 20 mEq/l Bedside Blood Gas Base Excess (LAB) -6.0 meq/L Bedside Blood Gas O2 Saturation 99.0 % José Test NA Oxygen Delivery Device Ventilator Bedside Oxygen Rate (breaths/min) 16 Blood Gas Minute Ventilation 9.6 Bedside FiO2 60 % Blood Gas Tidal Volume 400 Blood Gas PEEP 5 Hemoglobin 8.7 g/dL Hematocrit 25.1 % Troponin I 127.000 ng/ml Test 09/10/16 23:00 09/11/16 00:35 09/11/16 05:10 09/11/16 08:22 Bedside Hemoglobin 8.2 g/dl Bedside Hematocrit 24 % Bedside Blood Gas pH (LAB) 7.52 7.36 Bedside Blood Gas pCO2 (LAB) 41 mmHg 32 mmHg Bedside Blood Gas pO2 (LAB) 48 mmHg 84 mmHg Bedside Blood Gas HCO3 (LAB) 34 meq/L 18 meq/L Bedside Blood Gas Total CO2 35 mEq/l 19 mEq/l Bedside Blood Gas Base Excess (LAB) 11.0 meq/L -7.0 meq/L Bedside Blood Gas O2 Saturation 87.0 % 95.0 % Bedside Sodium 143 mEq/L Bedside Potassium 3.8 mEq/L Hemoglobin 10.1 g/dL 9.9 g/dL Hematocrit 29.6 % 28.9 % White Blood Count 5.15 K/uL Red Blood Count 3.36 M/uL Mean Corpuscular Volume 86.0 fL Mean Corpuscular Hemoglobin 29.5 pg Mean Corpuscular Hemoglobin Concent 34.3 g/dl Platelet Count 236 K/uL Mean Platelet Volume 10.4 fL Neutrophils (%) (Auto) 80.9 % Lymphocytes (%) (Auto) 7.4 % Monocytes (%) (Auto) 9.9 % Eosinophils (%) (Auto) 0.4 % Basophils (%) (Auto) 0.4 % Neutrophils # (Auto) 4.17 K/uL Lymphocytes # (Auto) 0.38 K/uL Monocytes # (Auto) 0.51 K/uL Eosinophils # (Auto) 0.02 K/uL Basophils # (Auto) 0.02 K/uL RDW Standard Deviation 48.3 fL RDW Coefficient of Variation 15.6 % Immature Granulocyte % (Auto) 1.0 % Immature Granulocyte # (Auto) 0.05 K/uL Nucleated RBC Absolute Count (auto) 1.84 K/uL Nucleated Red Blood Cells % 35.7 % Toxic Vacuolation 2+ Polychromasia 1+ Ovalocytes 1+ Echinocytes 1+ Sodium Level 138 mmol/L Potassium Level 3.7 mmol/L Chloride Level 102 mmol/L Carbon Dioxide Level 20 mmol/L Anion Gap 16.0 mmol/L Blood Urea Nitrogen 56 mg/dl Creatinine 4.80 mg/dl Est Creatinine Clear Calc Drug Dose 9.8 ml/min Estimated GFR () 9.5 Estimated GFR (Non- 8.2 BUN/Creatinine Ratio 11.6 Random Glucose 297 mg/dl Calcium Level 7.2 mg/dl Total Bilirubin 2.4 mg/dl Direct Bilirubin 1.4 mg/dl Aspartate Amino Transf (AST/SGOT) 1713 U/L Alanine Aminotransferase (ALT/SGPT) 2555 U/L Alkaline Phosphatase 71 U/L Troponin I 120.000 ng/ml Total Protein 4.9 gm/dl Albumin 2.6 gm/dl Blood Gas Sample Site Art Line José Test Pass Oxygen Delivery Device Ventilator Bedside Oxygen Rate (breaths/min) 16 Blood Gas Minute Ventilation 14.2 Bedside FiO2 50 % Blood Gas Tidal Volume 400 Blood Gas PEEP 5 Problem Qualifiers (1) Acute myocardial infarction: Myocardial infarction ST status: ST elevation myocardial infarction Involved coronary artery: unspecified coronary artery Qualified Codes: I21.3 - ST elevation (STEMI) myocardial infarction of unspecified site (2) Acute on chronic renal failure: Acute renal failure type: unspecified Chronic kidney disease stage: stage 5, not on chronic dialysis Qualified Codes: N17.9 - Acute kidney failure, unspecified; N18.5 - Chronic kidney disease, stage 5
[2016-09-11] MEDS ORDERED: SODIUM BICARB 8.4% INJ 50 MEQ/50 ML SYR IV ONE ×2 (14:19)
[2016-09-11] MEDS ORDERED: CALCIUM CHLORIDE 10% 10 ML SYR IV ONE (14:19)
[2016-09-11] MEDS ORDERED: ETOMIDATE 2 MG/ML 20 ML VIAL IV ONE (14:19)
[2016-09-11] MEDS ORDERED: ROCURONIUM BROMIDE 10 MG/ML 10 ML VIAL IV ONE (14:19)
[2016-09-11] MEDS ORDERED: SODIUM CHLORIDE 0.9% 10ML FLUSH IV ONE (14:19)
--- NOTE | 2016-09-11 14:36 | Death Pronouncement Note ---
Pronouncement Note Date & Time of September 11, 2016. 1420 Pronouncement At time of pronouncement the patients pupils were fixed and dilated, there was no spontaneous respiratory effort, no palpable pulse, no audible heart tones, and no response to pain or voice. certificate completed. Condolences offered to family at bedside. Jonh Stover MD
[2016-09-11] MEDS ORDERED: CHECK SCOPOLAMINE PATCH PLACEMENT SCH (16:00)
--- NOTE | 2016-09-11 20:14 | Death Summary ---
Summary of Admission Date September 10, 2016 at 07:13 Date & Time of September 11, 2016. 1420 Cause of cardiogenic shock 2nd to acute [place]/STEMI Secondary Diagnoses 1. acute renal failure 2. CKD stage 5 3. shock liver 4. T2DM 5. hyperkalemia 6. acute/chronic anemia 7. acute hypoxic respiratory failure 8. severe metabolic acidosis 9. metabolic encephalopathy 10. acute systolic/diastolic CHF 11. HTN 12. hyperlipidemia Hospital Course HISTORY OF PRESENT ILLNESS: This is a 75 y/o female with a history of CKD stage V, DM II, HTN, HLD and anemia of chronic disease who presented to the ED on 09/10 with persistent abdominal and back pain as well as nausea per family report. The patient arrived to the ED as a heart alert. The patient was found to have inferior ST elevations. She was assessed by Dr. Foley of cardiology and taken to the molder labels. The patient was found to have complete occlusion of the RCA, and 2 overlapping drug eluding stents were placed. The patient's respiratory status became unstable during the cath, and the patient was intubated by Dr. Ocasio. The patient had arrived in acute renal failure with a creatinine of 7.3, as well as hyperkalemia with a potassium of 7.2 and metabolic acidosis. The patient was treated with calcium gluconate, insulin and D50 in the ED. During the cath, the patient received more insulin as well as bicarb. A temporary HD cath was placed in the patient's right femoral vein during the cardiac cath. The patient was transferred to the ICU following the cath. HOSPITAL COURSE: After admission to the ICU she remained on multiple pressor agents, inotropic support, and mechanical ventilation for her cardiogenic shock/acute hypoxic respiratory failure. Attempts to dialyze were unsuccessful due to her instability in the setting of her cardiogenic shock. In light of her poor prognosis a palliative care consultation was requested, and on the AM of 09/11/16 the patient's family elected to withdraw care. She was extubated from the ventilator, placed on a morphine infusion, and at 1420 on 09/11/16 the patient passed peacefully. Copy To Beck Stock D.O.; Isis Jacobs M.D.
[2016-09-12] MEDS ORDERED: AMPICILLIN/SULBACTAM SOD INJ 3,000 MG in SODIUM CHLORIDE 0.9% 100ML 100 ML IV SCH (12:00)
== END 2016-09-11 14:20 | disposition expired | DRG 246 ==
LOC: EDBD 04:46 → C.EDB 04:47 → C.MSICU 07:13
PROVIDERS: ADMIT Internal Medicine Interventional Cardiology; ATTEND Internal Medicine
PROC: 0BH17EZ Insertion of Endotracheal Airway into Trachea, Via Natural or Artificial Opening (ICD-10-PCS; 2016-09-10)
PROC: 5A1945Z Respiratory Ventilation, 24-96 Consecutive Hours (ICD-10-PCS; 2016-09-10)
PROC: 4A133B1 Monitoring of Arterial Pressure, Peripheral, Percutaneous Approach (ICD-10-PCS; 2016-09-10)
PROC: 4A020N7 Measurement of Cardiac Sampling and Pressure, Left Heart, Open Approach (ICD-10-PCS; principal; 2016-09-10 06:59)
PROC: 027035Z Dilation of Coronary Artery, One Artery with Two Drug-eluting Intraluminal Devices, Percutaneous Approach (ICD-10-PCS; principal; 2016-09-10 06:59)
DX: I21.3 ST elevation (STEMI) myocardial infarction of unspecified site (principal); K72.00 Acute and subacute hepatic failure without coma; J96.01 Acute respiratory failure with hypoxia; G93.41 Metabolic encephalopathy; N17.9 Acute kidney failure, unspecified; N18.5 Chronic kidney disease, stage 5; E87.2 Acidosis; I12.0 Hypertensive chronic kidney disease with stage 5 chronic kidney disease or end stage renal disease; E11.22 Type 2 diabetes mellitus with diabetic chronic kidney disease; E87.5 Hyperkalemia; D63.8 Anemia in other chronic diseases classified elsewhere; R57.0 Cardiogenic shock; Z51.5 Encounter for palliative care; Z79.899 Other long term (current) drug therapy; Z66 Do not resuscitate